=== PATIENT | female | born 1940 | race Caucasian/White ===

== ENCOUNTER 2024-07-10 13:31 | Outpatient (CLI) | payer MEDICARE, SELFPAY ==
[2024-07-10 14:36] LABS: Basophils Percent Auto 0.4 % (0.2-1.2); Eosinophils Absolute Auto 0.2 K/mm3 (0-0.3); Eosinophils Percent Auto 1.5 % (0-4.4); Hematocrit 44.9 % (37.0-47.0); Hemoglobin 14.1 g/dL (12.0-15.0); Immature Granulocyte Absolute 0.02 K/mm3 (0.00-0.031); Immature Granulocyte Percent A 0.2 % (0-0.5); Lymphocytes Absolute Auto 2.03 K/mm3 (0.9-3.2); Lymphocytes Percent Auto 19.1 % (18.3-44.2); Mean Corpuscular HGB Conc 31.4 g/dl (32-36); Mean Corpuscular Hemoglobin 30.7 pg (26-34); Mean Corpuscular Volume 97.6 fl (80-100); Mean Platelet Volume 11.2 fl (7.4-10.4); Monocytes Absolute Auto 0.9 K/mm3 (0.1-0.6); Neutrophils Absolute Auto 7.5 K/mm3 (1.3-6.7); Neutrophils Percent Auto 70.8 % (45.5-73.1); Platelet Count Result 280 k/mm3 (150-375); Red Cell Distribution Width 13.2 % (11.5-14.5); White Blood Count 10.6 K/mm3 (4.5-10.0)
[2024-07-10 14:37] LABS: Alanine Aminotransferase 33 U/L (6-35); Albumin Level 4.3 g/dL (3.5-5.1); Alkaline Phosphatase 154 U/L (38-126); Anion Gap 9 mmol/L (4-12); Aspartate Amino Transferase 87 U/L (14-36); Bilirubin,Total 0.5 mg/dL (0.2-1.3); Blood Urea Nitrogen 24 mg/dL (7-17); Calcium 10.7 mg/dL (8.4-10.2); Carbon Dioxide 30 mmol/L (22-30); Chloride 100 mmol/L (98-107); Cholesterol 192 mg/dL (0-200); Estimated Glomerular Filt Rate 53; Glucose 81 mg/dL (65-110); HDL Direct 45 mg/dL; Potassium 4.2 mmol/L (3.4-5.0); Sodium 139 mmol/L (137-145); Triglycerides 287 mg/dL (<150)
[2024-07-10 14:48] LABS: LDL Cholesterol Direct 78 mg/dL
[2024-07-10 15:47] LABS: Hemoglobin A1C 7.6 % (<5.7)
== END 2024-07-10 13:32 | disposition home or self-care (01) ==
LOC: ANHGOSHLAB 13:33
PROVIDERS: PCP Nurse Practitioner Family; Visit Provider Nurse Practitioner Family
DX: E07.9 Disorder of thyroid, unspecified (principal); G62.9 Polyneuropathy, unspecified; M54.16 Radiculopathy, lumbar region; N28.9 Disorder of kidney and ureter, unspecified; E11.9 Type 2 diabetes mellitus without complications
CPT/HCPCS: 36415; 80053; 80061; 83036; 84443; 85025

== ENCOUNTER 2024-07-31 13:03 | Outpatient (CLI) | payer MEDICARE, SELFPAY ==
[2024-07-31 15:48] LABS: Alanine Aminotransferase 56 U/L (6-35); Albumin Level 4.2 g/dL (3.5-5.1); Alkaline Phosphatase 184 U/L (38-126); Anion Gap 9 mmol/L (4-12); Aspartate Amino Transferase 56 U/L (14-36); Bilirubin,Total 0.4 mg/dL (0.2-1.3); Blood Urea Nitrogen 30 mg/dL (7-17); Calcium 10.5 mg/dL (8.4-10.2); Carbon Dioxide 31 mmol/L (22-30); Chloride 97 mmol/L (98-107); Estimated Glomerular Filt Rate 53; Glucose 82 mg/dL (65-110); Potassium 3.9 mmol/L (3.4-5.0); Sodium 137 mmol/L (137-145)
[2024-07-31 16:26] LABS: Hemoglobin A1C 6.9 % (<5.7)
== END 2024-07-31 13:04 | disposition home or self-care (01) ==
LOC: ANHGOSHLAB 13:05
PROVIDERS: PCP Nurse Practitioner Family; Visit Provider Nurse Practitioner Family
DX: N28.9 Disorder of kidney and ureter, unspecified (principal); E11.9 Type 2 diabetes mellitus without complications
CPT/HCPCS: 36415; 80053; 83036

== ENCOUNTER 2025-04-15 15:55 | Outpatient (CLI) | payer MEDICARE, SELFPAY ==
--- OUTSIDE RECORDS SUMMARY | 2025-04-15 16:10 | XMS_ITS | Encounter Summary ---
Author Organization [facility] Address [address] [place] [address] Phone Care Team Providers Care Director Mortgage Name Role Phone Jose Mace MD, Carlos Primary Care Provider [phone] Encounter Details Date Type Department Care Team (Late st Contact Info) Description 09/11/2019 Orders Only [facility] [place] [address] [place] [address] Jacob Lambert MD [address] [place] [address] Chronic kidney disease, Stage III (moderate) (HCC); Mixed hyperlipidemia Social History Tobacco Use Types Packs/Day Years Used Date Smoking Tobacco: Never Smokeless Tobacco: Never Alcohol Use Standard Drinks/Week Comments No 0 (1 standard drink = 0.6 oz pur e alcohol) Comments Unknown Sex and Gender Information Value Date Recorded Sex Assigned at Not on file Legal Sex Female 9:57 PM EDT Gender Identity Not on file Sexual Orientation Not on file documented as of this encounter Plan of Treatment Not on file documented as of this encounter Visit Diagnoses Diagnosis Chronic kidney disease, Stage III (moderate) Mixed hyperlipidemia documented in this encounter Care Teams Director Mortgage Relationship Specialty Start Date End Date Carlos Garcia Jr., MD [address] [place] [address] [address] [place] [address] PCP - General 09/11/18 12/21/23 documented as of this encounter
--- OUTSIDE RECORDS SUMMARY | 2025-04-15 16:10 | XMS_ITS | Clinical Summary ---
Author Organization [facility] Address [address] [address] Phone Care Team Providers Care Syruper Name Role Phone Unavailable Primary Care Provider Unavailabl e Allergies Active Allergy Reactions Criticality Noted Date Comments Statins 10/29/2014 Other reaction(s): Other (see Comments) Elevated LFT's Medications amLODIPine (NORVASC) 5 MG tablet Take 2.5 mg by mouth 1 (one) time each day. 11/15/2014 Active aspirin 81 MG tablet Take 81 mg by mouth 1 (one) time each day. Active gabapentin (NEURONTIN) 100 MG capsule Take 2 capsules by mouth 1 (one) time each day. 04/05/2017 Active senna-docusate (PERICOLACE) 8.6-50 MG per tablet Take 2 tablets by mouth 1 (one) time each day. 06/24/2018 Active aspirin 325 MG tablet Take 325 mg by mouth 1 (one) time each day. 01/10/2016 Active Multiple Vitamin (MULTI-VITAMIN DAILY PO) Take 1 tablet by mouth 1 (one) time each day. Active Active Problems Problem Noted Date Diagnosed Date Hypertension 06/22/2018 Calculus of gallbladder with chronic 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 obstruction 06/06/2017 Renal stone 01/31/2016 Overview (09/08/2018): Overview: 02/07/16 Left ESWL, FU in 4 wks with [facility] 01/31/16 Left Kidney stone, Schedule left ESWL Chronic kidney disease, Stage III (moderate) Hyperlipidemia 02/04/2014 Immunizations Immunization Administration Dates Next Due H1N1 Inj 08/25/2014,09/11/2013,08/07/2013 Influenza (IM) Preservative Free 09/08/2013 Influenza Split High Dose Pr eservative Free IM 08/11/2016,08/13/2014 Influenza TIV (IM) 08/25/2014,09/11/2013 Influenza, Quadrivalent, Pre servative Free 08/21/2018,08/06/2017,08/29/2016,08/04 Influenza, Unspecified 08/07/2013 Pneumococcal Conjugate 13-Valent 11/28/2016 Pneumococcal Polysaccharide 11/11/2009 Family History Medical History Relation Comments Heart disease Father 2 Relation Status Comments Father 1 Father 2 Social History Tobacco Use Types Packs/Day Years Used Date Smoking Tobacco: Never Smokeless Tobacco: Never Alcohol Use Standard Drinks/Week Comments No 0 (1 standard drink = 0.6 oz pur e alcohol) Comments Unknown Sex and Gender Information Value Date Recorded Sex Assigned at Not on file Legal Sex Female 9:57 PM EDT Gender Identity Not on file Sexual Orientation Not on file Last Filed Vital Signs Vital Sign Reading Time Taken Comments Blood Pressure 132/82 09/11/2018 11:42 AM CDT Pulse 72 09/11/2018 11:42 AM CDT Temperature - - Respiratory Rate - - Oxygen Saturation - - Inhaled Oxygen Concentration - - Weight 76.2 kg (168 lb) 09/11/2018 11:42 AM CDT Height 162.6 cm (5' 4) 07/01/2017 3:57 AM CDT Body Mass Index 28.84 07/01/2017 3:57 AM CDT Plan of Treatment Health Maintenance Due Date Last Done Comments Influenza Vaccine (Season Ended) 2025 08/21/2018, 08/06/2017, 08/29/2016, Additional history exists Pneumococcal Vaccine: 50+ Years Completed 11/28/2016, 11/11/2009 Pneumococcal Vaccine: Peds (0 to 5 Years) and At-Risk Patients (6 to 49 Years) Discontinued 11/28/2016, 11/11/2009 Hepatitis B Vaccine Aged Out No longe r eligible based on patient's age to complete this topic Insurance Medicare RR [facility] Medicare RR [facility]
--- OUTSIDE RECORDS SUMMARY | 2025-04-15 16:10 | XMS_ITS | CONTINUITY OF CARE DOCUMENT ---
Author Name wesley olson Address Unknown Organization [facility] Address [address] [place] [address] Phone [phone] Care Team Providers Care Temperature Regulator Pyrometer Name Role Phone Joselyn MULLER, Say Unavailable Huber TESTER OPERATOR HELPER-BC, Kylah L Unavailable [phone] Huber TESTER OPERATOR HELPER-BC, Kylah L Unavailable PROBLEMS Condition Status Date Provider Notes HTN active Say Alves MD PVD active Say Alves MD Neuropathy active Say Alves MD CAD, mild active Say Alves MD CKD active Say Alves MD Hyperlipidemia active Say Alves MD Family History of Sudden Cardiac : active ? Say Alves MD Family History Coronary Hear t Disease male < 55: active ? Say Alves MD ENCOUNTERS Date Type Provider Location Encounter Diagnosis - In-person encounter Office Visit Say Alves MD [facility] CAD, mild - In-person encounter Office Visit Say Alves MD [facility] - In-person encounter Office Visit Say Alves MD [facility] HTNFamily History Coronary Heart Disease male < 55:Family History of Sudden Cardiac :Hyperlipidem iaPVDCKDNeuropathy VITAL SIGNS Date Observation Value Provider Body Mass Index (Ratio) 24.76 kg/m2 Nico Gonzales blood pressure, diastolic 76 mm[Hg] Ela Castillo blood pressure, systolic 119 mm[Hg] Hui Castillo oxygen saturation, oximetry 98 % Deana Castillo respiratory rate E&M 18 /min Forest Castillo pulse rate 83 /min Deana motnelongo weight E&M 148.8 [lb_av] Deana avalos height E&M 65 [in_i] Deana montelongo Body Mass Index (Ratio) 25.12 kg/m2 Sofia Alves MD blood pressure, cuff size regular Elena Evangelista blood pressure, diastolic 60 mm[Hg] Elena Evangelista blood pressure, systolic 102 mm[Hg] Petar Evangelista oxygen saturation, oximetry 98 % Isabella Evangelista respiratory rate E&M 16 /min Isabella Evangelista pulse rate 83 /min Isabella Evangelista weight E&M 151 [lb_av] Isabella Evangelista height E&M 65 [in_i] Isabella Evangelista Body Mass Index (Ratio) 25.62 kg/m2 Sofia Alves MD blood pressure, cuff size regular Anatoly Bolivar blood pressure, diastolic 76 mm[Hg] Anatoly rri Osmel blood pressure, systolic 127 mm[Hg] Heather Bolivar oxygen saturation, oximetry 98 % Marisel Bolivar respiratory rate E&M 16 /min Marisel patel pulse rate 96 /min Marisel valles weight E&M 154 [lb_av] Marisel fernandezer height E&M 65 [in_i] Marisel valles ALLERGIES Allergy Name Onset Date Reaction Criticality Status STATINS significant elevation of the AST/ALT Low Criticality active HISTORY OF MEDICATION USE Medication Status Instructions Dates Provider Indications Com ments MULTIVITAMIN ADULTS 50+ ORAL TABLET active take one pill a day 3 Marisel Bolivar PLAVIX 75 MG ORAL TABLET active take one pill a day 3 Marisel Bolivar GABAPENTIN 100 MG ORAL CAPSULE active take 3 pills a day 3 Marisel Bolivar ASPIRIN 81 MG ORAL TABLET DELAYED RELEASE active take one pill a day 3 Marisel Bolivar ZETIA 10 MG ORAL TABLET active take one pill a day 3 Marisel Bolivar TRAMADOL HCL 50 MG ORAL TABLET active take one to 2 pills every 8 hours as needed 3 Marisel Bolivar FIORINAL/CODEINE #3 CAPSULE active one pill every 4 hours as needed 3 Marisel Bolivar AMLODIPINE BESYLATE 5 MG ORAL TABLET active take one pill a day 3 Marisel Bolivar SOCIAL HISTORY Date Observation Value Provider social history reviewed E&M revi ewed - no changes required Say Alves MD alcohol use no Deana Pedro jayda smoking status Never smoker Deana Ste kelvinrebeca social history reviewed E&M revi ewed - no changes required Say Alves MD alcohol use no Isabella Evangelista smoking status Never smoker Isabella Evangelista number of grandchildren Say Alves MD U alena Alves MD social history E&M Patient has n ever smoked. Smoking History: P antonio has never smoked. Say Alves MD social history reviewed E&M revi ewed - no changes required Say Alves MD alcohol use no Marisel Cruz lder smoking status Never smoker Say Alves MD FAMILY HISTORY Family Member Condition Mother Family History of Co ngestive Heart Failure: Mother Family History of June ng Cancer: Father Family History of Turner dden Cardiac : Father Family History Coron miladis Heart Disease male < 55: INSURANCE PROVIDERS Payer name Policy type / Coverage type Jackelin red republican ID [facility] [id number] RAILROAD MEDICARE Medicare [id number] ADVANCE DIRECTIVES Name Date DISCUSSED - NO DECISION MADE TREATMENT PLAN Date Name Performer Cardiology:Continue aspirin. Can stop plavix and we need to get the results of her recent FLP. She is currently only on zetia. Say Alves MD Cardiology:Minimal PVD Say pantoja MD Cardiology [place] : H er updated medication list for this problem includes: Zetia 10 Mg Oral Tabs (Ezetimibe) ..... Take one pill a day Say Alves MD Cardiology [place] : B P today: 127/76 Her updated medication list for this problem includes: Aspirin 81 Mg Oral Tbec (Aspirin) ..... Take one pill a day Amlodipine Besylate 5 Mg Oral Tabs (Amlodipine besylate) ..... Take one pill a day Say Alves MD HISTORY OF PROCEDURES Procedure Date Procedure Name Provider Procedure Notes S venu SNOMED-CT: 03678677 Physical Exam, Performed: Pulse Exam of Foot Say Alves MD completed SNOMED-CT: 465671545 480216 Current Medications Documented Say Alves MD completed SNOMED-CT: 782080550 535800 Current Medications Documented Say Alves MD completed SNOMED-CT: 67121735 Physical Exam, Performed: Pulse Exam of Foot Say Alves MD completed EKG Say Alves MD completed SNOMED-CT: 839233516 336739 Current Medications Documented Say Alves MD completed
--- OUTSIDE RECORDS SUMMARY | 2025-04-15 16:11 | XMS_ITS | Referral Summary ---
Author Organization [facility] Address [address] [place] [address] Care Team Providers Care Industrial Waste Treatment Technician Name Role Phone Latimer, Carlos Sunny Primary Care Provider Allergies Active Allergy Reactions Criticality Noted Date Comments Atorvastatin Other (See comments) Low 06/15/2019 Elevates liver enzymes Morphine Nausea only Low 07/21/2020 Medications butalbital-aspi rin-caffeine (FIORINAL) 50-325-40 mg capsuleIndicati ons:Migraine Take 1 capsule by mouth every 4 (four) hours as needed for headaches 30 capsule 1 Active ezetimibe (ZETIA) 10 mg tablet [address] (PROTONIX) 20 mg EC tablet 3 Active gabapentin (NEURONTIN) 300 mg capsule Take 1 capsule (300 mg total) by mouth 2 (two) times a day Active acetaminophen-c odeine (TYLENOL with CODEINE #3) 300-30 mg per tablet Take 1 tablet by mouth 3 (three) times a day as needed for pain 90 tablet [address] (CYMBALTA) 60 mg capsuleIndicati ons:Neuropathic pain TAKE 1 CAPSULE EVERY DAY 100 capsule 1 4 Active furosemide (LASIX) 20 mg tabletIndicatio ns:Localized edema Take 1 tablet (20 mg total) by mouth daily 90 tablet 1 4 06/09/20 25 Active Active Problems Problem Noted Date Diagnosed Date Benign hypertension with CKD (chronic kidney disease) stage III 12/24/2023 Lesion of pancreas 01/02/2023 Overview (12/24/2023): IPMN followed by GI (Dr. Cardenas) Imaging Nov 2023 and repeat in 2 years Sensorineural hearing loss (SNHL) of both ears 0 12/12/2021 Intervertebral disc disorder with radiculopathy of lumbar region 04/12/2021 Overview (04/12/2021): Added automatically from request for surgery [id number] Lumbosacral radiculopathy 03/02/2021 Spondylolisthesis of lumbar region 03/02/2021 Mixed stress and urge urinary incontinence 10/24 Chronic bilateral low back pain without sciatica 06/15/2019 Calculus of gallbladder with chronic 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 obstruction 06/06/2017 Atherosclerotic heart diseas e of [place] coronary artery without angina pectoris 02/18/2017 Neuropathy 09/27/2016 Overview (03/30/2024): Following with Neurology Continue gabapentin and Cymbalta p.r.n. use of pain medication Calculus of kidney 01/31/2016 Overview (06/05/2022): Overview: 02/07/16 Left ESWL, FU in 4 wks with KUB 01/31/16 Left Kidney stone, Schedule left ESWL 02/07/16 Left ESWL, FU in 4 wks with KUB 01/31/16 Left Kidney stone, Schedule left ESWL 02/07/16 Left ESWL, FU in 4 wks with KUB 01/31/16 Left Kidney stone, Schedule left ESWL Overview: 02/07/16 Left ESWL, FU in 4 wks with KUB 01/31/16 Left Kidney stone, Schedule left ESWL Stage 3 chronic kidney disease 09/06/2015 Overview (12/24/2023): Overall stable GFR 47 in April 2023 GFR 48 in Nov 2023 Dyslipidemia 02/04/2014 Overview (12/24/2023): Stable on Zetia LDL 114 in April 2023 Migraine 02/04/2014 Essential hypertension 02/04/2014 Overview (12/24/2023): Chronic, stable condition Resolved Problems Problem Noted Date Diagnosed Date Resolved Date Family history of coronary artery disease 06/05/2022 12/24/2023 Family history of other specified conditions 12/24/2023 Bacteria in urine 06/22/2018 12/24/2023 Colitis, acute 06/22/2018 12/24/2023 Neuropathic pain 05/05/2017 03/30/2024 Immunizations Immunization Administration Dates Next Due Influenza, Quadrivalent, Rec ombinant, Egg Free, Preservative Free, Intramuscular 10/29/2023,10/12/2022,08/21/2021,08/29,08/18/2019 Influenza, Quadrivalent, Spl it, Preservative Free, Intramuscular 08/21/2018,08/06/2017,08/29/2016,08/04 Influenza, Trivalent, High D ose, Split, Preservative Free, Intramuscular 08/11/2016,08/13/2014 Influenza, Trivalent, IM (MDV) 08/25/2014,2012,08/07/2013 Influenza, Trivalent, Preser vative Free, Intramuscular 09/08/2013 Moderna SARS-CoV-2 Monovalen t Vaccination (12+ YRS) 01/03/2021,12/06/2020 Pneumococcal Conjugate PCV 13 11/28/2016 Pneumococcal Polysaccharide PPV23 11/11/2009 Tdap 08/31/2019 Social History Tobacco Use Types Packs/Day Years Used Date Smoking Tobacco: Never Cigarettes Smokeless Tobacco: Never Tobacco Cessation:Counseling Given: Not Answered AUDIT-C Answer Date Recorded Q1: How often do you have a drink containing alc ohol? 2-4 times a month 12/24/2023 Q2: How many drinks containi ng alcohol do you have on a typical day when you are drinking? 1 or 2 12/24/2023 Q3: How often do you have si x or more drinks on one occasion? Never 12/24/2023 PHQ-2 Answer Date Recorded PHQ-2 Total Score (If total score is 3 or more points, staff should administer the PHQ-9) 0 12/24/2023 Comments No Sex and Gender Information Value Date Recorded Sex Assigned at Not on file Legal Sex Female 6:30 AM ZIGZAG TUNNEL ELASTIC OPERATOR Gender Identity Female 02/17/2021 4:22 PM CDT Sexual Orientation Straight 02/17/2021 4: 22 PM CDT Last Filed Vital Signs Vital Sign Reading Time Taken Comments Blood Pressure 142/80 03/30/2024 11:03 AM CDT Pulse 97 03/30/2024 11:03 AM CDT Temperature 36.4 C (97.5 F) 03/30/2024 11:03 AM CDT Respiratory Rate 18 03/30/2024 11:03 AM CDT Oxygen Saturation 97% 03/30/2024 11:03 AM CDT Inhaled Oxygen Concentration - - Weight 83.9 kg (185 lb) 03/30/2024 11:03 AM CDT Height 160 cm (5' 3) 03/30/2024 11:03 AM CDT Body Mass Index 32.77 03/30/2024 11:03 AM CDT Plan of Treatment Not on file Medical Devices Implanted Type Area Mcat Tutor Device Identifier Shelf Expiration Date Model / Serial / Lot Spinal Graft Tech [id number] Magnifuse 5x1cm Spine Cervical Posterior Graft Bone Demineralized - [id number] - [id number] Implanted:Qty: 1 on 04/25/2021 by Ar Nova MD PhD at [facility] N/A: Thoracic-L umbar Spine Medtronic Inc 01/17/2023 [id number] / [id number] / Acuity [employer] Inc [id number] Tissue Bone Void Filler Acupac Plus 10cc - [id number] - [id number] Implanted:Qty: 1 on 04/25/2021 by Ar Nova MD PhD at [facility] N/A: Thoracic-L umbar Spine [employer] Inc 05/11/2025 [id number] / [id number] Creo Amp Polyaxial Thread Tulip Spine Transfacet Screw Bone Cocr - [id number] Implanted:Qty: 4 on 04/25/2021 by Andrea Bruno MD at [facility] N/A: Spine Lumbar [employer] 7146.0110 / / [employer] 1134.001 Creo Spinal Cap Locking Nonsterile Mis - [id number] Implanted:Qty: 4 on 04/25/2021 by Andrea Bruno MD at [facility] [employer] 1134.0010 / / [employer] 1119.1435 Creo Creo Amp 6-5mm 35mm Modular Spine Cortical Screw Bone - [id number] Implanted:Qty: 4 on 04/25/2021 by Andrea Bruno MD at [facility] N/A: Spine Lumbar [employer] 1119.1435 / / [employer] 193.122 Rise [id number] 10d Lordotic Spacer Spinal Nonsterile - [id number] Implanted:Qty: 1 on 04/25/2021 by Andrea Bruno MD at [facility] N/A: Spine Lumbar [employer] 193.122 / / [employer] 1119.7035 Creo 5.5mm 35mm Curve Ney Spinal Titanium - [id number] Implanted:Qty: 2 on 04/25/2021 by Andrea Burno MD at [facility] N/A: Spine Lumbar [employer] 1119.7035 / / Insurance MEDICARE [place] [address] [place] [address] [facility]ICARE [facility] Advance Directives For more information, please contact: [phone] Documents on File Type Date Recorded Patient Cold Storage Superintendent Expl anation ADVANCE DIRECTIVE 04/19/2021 7:41 AM ADVANCE DIRECTIVE 04/20/2020 12:00 AM DENISHA R OF MAINTENANCE MACHINIST FINANCIAL/MEDICAL * Full Code (Latest Code Status on File) Date Activated Date Inactivated Comments 04/25/2021 8:13 PM 04/27/2021 2:26 PM Care Teams Industrial Waste Treatment Technician Relationship Specialty Start Date End Date Carlos Manzanares DO PCP - General Family Practice 10/30/19
--- OUTSIDE RECORDS SUMMARY | 2025-04-15 16:11 | XMS_ITS | Clinical Summary ---
Author Organization [facility] Address [address] [place] [id number] Phone Care Team Providers Care Property Management Coordinator Name Role Phone Unavailable Primary Care Provider Unavailabl e Medications amLODIPine (NORVASC) 5 MG tablet 1 daily 0 02/08/2017 Active traMADol (ULTRAM) 50 MG tablet half bid prn 0 02/08/2017 Active Multiple Vitamins-Minera ls (MULTIVITAMIN ADULT) tablet 1 daily 0 02/11/2017 Activ e gabapentin (NEURONTIN) 100 MG capsule 3 daily 0 02/08/2017 Active ezetimibe (ZETIA) 10 MG tablet 1 daily 0 02/08/2017 Active clopidogrel (PLAVIX) 75 MG tablet 1 daily 0 02/08/2017 Active aspirin 81 MG chewable tablet 1 daily 0 02/08/2017 Act inder butalbital-aspi rin-caffeine (FIORINAL) 50-325-40 MG per capsule 1 capsule orally every 4 hours as needed 0 02/11/2017 Active Active Problems Problem Noted Date Diagnosed Date Chronic kidney disease, stage 3 (moderate) 02/11 Essential (primary) hypertension 02/11/2017 Other hyperlipidemia 02/11/2017 Overview (01/24/2019): Converted unresolved ICD9, potential mismatch. Family History Medical History Relation Comments Heart disease Father Heart disease Mother Malignant neoplastic disease Mother Relation Status Comments Father Mother Social History Tobacco Use Types Packs/Day Years Used Date Smoking Tobacco: Never Alcohol Use Standard Drinks/Week Comments No 0 (1 standard drink = 0.6 oz pur e alcohol) Comments Unknown Sex and Gender Information Value Date Recorded Sex Assigned at Not on file Legal Sex Female 7:29 AM MST Gender Identity Not on file Sexual Orientation Not on file Last Filed Vital Signs Vital Sign Reading Time Taken Comments Blood Pressure 122/84 02/11/2017 12:01 AM CDT Pulse 72 02/11/2017 12:01 AM CDT Temperature 35.3 C (95.5 F) 02/11/2017 12:01 AM CDT Respiratory Rate - - Oxygen Saturation - - Inhaled Oxygen Concentration - - Weight 67.1 kg (148 lb) 02/11/2017 12:01 AM CDT Height 162.6 cm (5' 4) 02/11/2017 12:01 AM CDT Body Mass Index 25.4 02/11/2017 12:01 AM CDT Plan of Treatment Not on file
--- OUTSIDE RECORDS SUMMARY | 2025-04-15 16:11 | XMS_ITS | Clinical Summary ---
Author Organization [facility] Address [address] [place] [id number] Care Team Providers Care Eviction Specialist Name Role Phone Chaves, Carlos Sunny Primary Care Provider Allergies Active [...] (04/12/2021): Added automatically from request for surgery [id number] Lumbosacral radiculopathy 03/02/2021 Spondylolisthesis of lumbar region 03/02/2021 Mixed stress and urge urinary incontinence 10/24 Chronic bilateral low back pain without sciatica 06/15/2019 Calculus of gallbladder with chronic 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 obstruction 06/06/2017 Atherosclerotic heart diseas e of [place] coronary artery without angina pectoris 02/18/2017 Neuropathy [...] 11/28/2016 Pneumococcal Polysaccharide PPV23 11/11/2009 Tdap 08/31/2019 Surgical History Surgery Date Site/Laterality Comments CHOLECYSTECTOMY HYSTERECTOMY TONSILECTOMY, ADENOIDECTOMY, BILATERAL MYRINGOTOMY AND TUBES MELANOMA RESECTION TUBAL LIGATION COLONOSCOPY EYE SURGERY CATARACT EXTRACTION CATARACT EXTRACTION removal Medical History Medical History Date Comments Cancer (HCC) Chronic kidney disease Lumbar radiculopathy Peripheral neuropathy Cataract Kidney stone kidney disease Family History Medical History Relation Name Comments Stroke Cousin Heart disease Father Mendoza Heart disease Maternal Grandmother Marsha Cancer Mother Nina Heart disease Mother Nina Anesthesia problems Neg Hx Relation Name Status Comments Cousin Father Mendoza Maternal Grandmother Marsha Mother Nina Social History Tobacco Use Types Packs/Day Years [...] on file Legal Sex 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 Gender Identity Female 02/17/2021 4:22 PM CDT Sexual Orientation Straight 02/17/2021 4: 22 PM CDT Obstetrics History Last Filed Vital Signs Vital Sign Reading [...] 03/30/2024 11:03 AM CDT Plan of Treatment Health Maintenance Due Date Last Done Comments Hepatitis B Screening 1958 Zoster Vaccine (1 of 2) 1990 Well Visit 65+ 2005 Osteoporosis Screening-Bone Density Scan 06/01/2013 06/01/2011 Covid-19 Vaccine (2023-2 5 season) 2024 01/03/2021, 12/06/2020 Depression Screening 12/24/2024 12/24/2023 Fall Risk Assessment 12/24/2024 12/24/2023, 04/27/20 Influenza Vaccine (Season Ended) 2025 10/29/2023, 10/12/2022, 08/21/2021, Additional history exists DTaP/Tdap/Td Vaccine (2 - Td or Tdap) 08/31/2029 08/31/2019 Pneumococcal vaccine 65+ Completed 11/28/2016, 11/2009 Medical Devices Implanted Type Area Lei Maker Device Identifier Shelf Expiration Date Model / Serial / Lot Spinal Graft Tech [id number] Magnifuse 5x1cm Spine Cervical Posterior Graft Bone Demineralized - [id number] - [id number] Implanted:Qty: 1 on 04/25/2021 by Ar Nova MD PhD at [facility] N/A: Thoracic-L umbar Spine Medtronic Inc 01/17/2023 [id number] / [id number] / Acuity [employer] Inc [id number] Tissue Bone Void Filler Acupac Plus 10cc - [id number] - [id number] Implanted:Qty: 1 on 04/25/2021 by Ar Nova MD PhD at [facility] N/A: Thoracic-L umbar Spine [employer] 05/11/2025 [id number] / [employer] 7146.011 Creo Amp Polyaxial Thread Tulip Spine Transfacet Screw Bone Cocr - [id number] Implanted:Qty: 4 on 04/25/2021 by Andrea rBuno MD at [facility] N/A: Spine Lumbar [employer] 7146.0110 / / [employer] 1134.001 Creo Spinal Cap Locking Nonsterile Mis - [id number] Implanted:Qty: 4 on 04/25/2021 by Andrea Bruno MD at [facility] [employer] 1134.0010 / / [employer] 1119.1435 Creo Creo Amp 6-5mm 35mm Modular Spine Cortical Screw Bone - [id number] Implanted:Qty: 4 on 04/25/2021 by Andrea Bruno MD at [facility] N/A: Spine Lumbar [employer] 1119.1435 / / [employer] 193.122 Rise [id number] 10d Lordotic Spacer Spinal Nonsterile - [id number] Implanted:Qty: 1 on 04/25/2021 by Andrea Bruno MD at [facility] N/A: Spine Lumbar [employer] 193.122 / / [employer] 1119.7035 Creo 5.5mm 35mm Curve Ney Spinal Titanium - [id number] Implanted:Qty: 2 on 04/25/2021 by Andrea Bruno MD at [facility] N/A: Spine Lumbar [employer] 1119.7035 / / [place] [address] [facility] MEDICARE RAILROAD [facility] Advance Directives For more information, please contact: [phone] Documents on File Type Date Recorded Patient Choker Hooker Expl anation ADVANCE DIRECTIVE 04/19/2021 7:41 AM ADVANCE DIRECTIVE 04/20/2020 12:00 AM DENISHA R OF AUTOMOTIVE DIAGNOSTIC TECHNICIAN FINANCIAL/MEDICAL * Full Code (Latest Code Status on File) Date Activated Date Inactivated Comments 04/25/2021 8:13 PM 04/27/2021 2:26 PM Care Teams Eviction Specialist Relationship Specialty Start Date End Date Carlos Manzanares DO PCP - General Family Practice 10/30/19
--- OUTSIDE RECORDS SUMMARY | 2025-04-15 16:11 | XMS_ITS | Clinical Summary ---
Author Organization [facility] Address [address] [place] [address] Care Team Providers Care Dry Roller Name Role Phone Carlos Manzanares Charlene Primary Care Provider [phone] Source Comments [facility],non-owned Affiliates and Associated Physician Practices is amultiple site organization consisting of ambulatory clinics and hospital sitesin [place], [place], [place] and [place]. This disclosure is being madepursuant to the Care Everywhere program and may not contain all information available regarding this patient. Last updated 18.[employer] [facility] Allergies Active Allergy Reactions Criticality Noted Date Comments Hmg-Coa-R Inhibitors Other 10/29/2014 Other reaction(s): Other (see Comments) Elevated LFT's Elevates liver enzymes Elevated LFT's Morphine Nausea and/or Vomiting Low 07/21/2020 Medications * Be aware that medications may not be up to date on this document. Alwaysverify current medications with the patient. Acetaminophen- Codeine 300-30 MG acetaminophen 300 mg-codeine 30 mg tablet 0 Active hydroCHLOROthi azide (MICROZIDE) 12.5 MG capsule Take 12.5 mg by mouth once daily 0 Active DULoxetine (CYMBALTA) 30 MG capsule Take 30 mg by mouth once daily 0 Active oxybutynin CR 24hr (DITROPAN-XL) 5 MG tablet Take 5 mg by mouth once daily 1 Active Active Problems No known active problems Social History Tobacco Use Types Packs/Day Years Used Date Smoking Tobacco: Never Smokeless Tobacco: Never Comments Unknown Sex and Gender Information Value Date Recorded Sex Assigned at Not on file Legal Sex Female 10:01 AM CDT Gender Identity Not on file Sexual Orientation Not on file Last Filed Vital Signs Vital Sign Reading Time Taken Comments Blood Pressure 136/74 12/23/2020 12:28 PM MANAGER STUDY Pulse 97 12/23/2020 12:28 PM MANAGER STUDY Temperature - - Respiratory Rate 18 12/23/2020 12:28 PM MANAGER STUDY Oxygen Saturation 98% 12/23/2020 12:28 PM MANAGER STUDY Inhaled Oxygen Concentration - - Weight 83.9 kg (185 lb) 09/28/2020 11:03 AM MANAGER STUDY Height 160 cm (5' 3) 09/28/2020 11:03 AM MANAGER STUDY Body Mass Index 32.77 09/28/2020 11:03 AM MANAGER STUDY Plan of Treatment Health Maintenance Due Date Last Done Comments BONE DENSITY TESTING 1940 DTAP/TDAP/TD VACCINES (1 - Tdap) 1959 PNEUMOCOCCAL VACCINE 50+ (1 of 1 - PCV) 1990 ZOSTER VACCINE (1 of 2) 1990 Respiratory Syncytial Virus (RSV) Vaccine Pt: or over 60 yrs (1 - 1-dose 75+ series) 2015 COVID-19 VACCINE (2 - season) 2024 12/06/2020 DEPRESSION SCREENING 11/11/2024 INFLUENZA VACCINE (Season Ended) 2025 08/29/2020, 08/18/2019, 08/21/2018, Additional history exists HEPATITIS B VACCINE Aged Out No longe r eligible based on patient's age to complete this topic HIB VACCINE Aged Out No longer eligi ble based on patient's age to complete this topic HPV VACCINE Aged Out No longer eligi ble based on patient's age to complete this topic MENINGOCOCCAL (Group B) VACCINE SHARED DECISION-MAKING Aged Out No longer eligible based on patient's age to complete this topic MENINGOCOCCAL GROUPS A/C/Y/W VACCINE Aged Out No longer eligible based on patient's age to complete this topic Insurance MEDICARE SUPPLEMENT PAYOR GENERIC MEDICARE ANTHEM Care Teams Dry Roller Relationship Specialty Start Date End Date Carlos Manzanares DO PCP - General Family Medicine 09/06/20
--- OUTSIDE RECORDS SUMMARY | 2025-04-15 16:11 | XMS_ITS | Continuity of Care Document ---
Author Organization [facility], L TD Address [address] [place] [address] Phone Care Team Providers Care Molding Supervisor Name Role Phone Tracee Sol OD Unavailable Unavailable Allergies, Adverse Reactions, Alerts Substance Reaction Status Criticality No Known Drug Allergies Active No I nformation Medications Medication Instructions Dosage Effective Dates (start - stop) Status Comments gabapentin 100 mg capsule take 2 capsule by oral route AM, 1 capsule at noon, and 2 capsules in the evening. - Active tramadol 50 mg tablet take 1 tablet by oral route every 6 hours as needed 50 MG - Active Aspirin Low Dose 81 mg [...] Diagnoses Date Provider Providers Copied on Encounter [facility], [facility], [address] [place] [address], [id number] , [place] tel: [phone] [facility] no problems with vision and no complaints (chief complaint)P t. declines Wellness/Sc reening photos (chief complaint)n o problems with vision and no complaints (chief complaint)P t. declines Wellness/Sc reening photos (chief complaint) Dry eye syndrome of bilateral lacrimal glandsPresbyopiaH ypermetropia, left eyeRegular astigmatism, bilateralPresence of intraocular lens 9 [facility]. [address] [place] [address], [id number] , [place]. tel: [phone] [facility], [facility], [facility] [place], [place], [id number] , [place] tel: [phone] [facility] no problems with vision and no complaints (chief complaint)n o problems with vision and no complaints (chief complaint) Dry eye syndrome of right lacrimal glandDry eye syndrome of left lacrimal glandHypermetropi a, bilateralRegular astigmatism, bilateralPresbyop iaPresence of intraocular lens 8 Avinash Zheng. [address] [place] [address], [place], [place], [id number] , [place]. tel: [phone] Referring Provider: Linden Chang, [address] [place] [address], [place], [address] . tel:[phone] [facility], [address] [place] [address], [id number] , [place] tel: [phone] [facility] No Information 7 Avinash Zheng. [address] [place] [address], [place], [place], [id number] , [place]. tel: [phone] Referring Provider: Norm Degroot, [address] [place] [address], [place], [address] . tel:[phone] [facility], [address] [place] [address], [id number] , [place] tel: [phone] [facility] irritation, scratchy, vision improved (chief complaint)i rritation, scratchy, vision improved (chief complaint) Presence of intraocular lensCataract extraction status, left eyeCataract extraction status, right eye 7 Avinash Zheng. [address] [place] [address], [place], [place], [id number] , [place]. tel: [phone] Referring Provider: Linden Chang, [address] [place] [address], [id number] . tel:[phone] [facility], [address] [place] [address], [id number] , [place] tel: [phone] [facility] burning (chief complaint)b urning (chief complaint) Dry eye syndrome of bilateral lacrimal glandsPresence of intraocular lens 7 Bettie Almonte. [address] [place] [address], [place], [place], [id number] , [place]. tel: [phone] [facility], [address] [place] [address], [id number] , [place] tel: [phone] [facility] blurry vision OS (chief complaint)f eels better today, last night was pain OS (chief complaint)v ision is improved OD (chief complaint)b lurry vision (chief complaint)f eels better today, last night was pain (chief complaint)v ision is improved (chief complaint) No Information Raj Cheatham. [address] [place] [address], [id number] , [place]. tel: [phone] Referring Provider: Linden Chang, [address] [place] [address], [id number] . tel:[phone] [facility], [address] [place] [address], [id number] , [place] tel: [phone] [facility] No Information Avinash Zheng. [address] [place] [address], [id number] , [place]. tel: [phone] Referring Provider: Linden Chang, [address] [place] [address], [address] . tel:[phone] [facility], [address] [place] [address], [id number] , [place] tel: [phone] [facility] No Information Avinash Zheng. [address] [place] [address], [id number] , [place]. tel: [phone] Referring Provider: Norm Degroot, [address] [place] [address], [address] . tel:[phone] [facility], [address] [place] [address], [id number] , [place] tel: [phone] [facility] blurry vision OD (chief complaint)d enies pain or discomfort OD (chief complaint)n ot as clear as OD OS (chief complaint)b lurry vision (chief complaint)d enies pain or discomfort (chief complaint)n ot as clear as OD (chief complaint) No Information 7 Avinash Zheng. [address] [facility], [place], [place], [id number] , [place]. tel: [phone] Referring Provider: Linden Chang, [address] [place] [address], [address] . tel:[phone] [facility], [facility], [address] [place] [address], [place], [place], [id number] , [place] tel: [phone] [facility], [facility] No Information 7 Avinash Norm. [address] [facility], [place], [place], [id number] , [place]. tel: [phone] Referring Provider: Norm Degroot, [address] [place] [address], [id number] . tel:[phone] [facility], [facility], [address] [place] [address], [id number] , [place] tel: [phone] [facility] decreased vision (chief complaint)d ecreased vision (chief complaint) Presbyopia 7 Avinash Zheng. [address] [place], [place], [id number] , [place]. tel: [phone] Referring Provider: Linden Chang, [address] [place], [address] . tel:[phone] [facility], [facility], [address] [place] [address], [id number] , [place] tel:[phone] [facility] blurry vision (chief complaint)b lurry vision (chief complaint) Age-related nuclear cataract, bilateral 6 Avinash Zheng. [address] [facility], [place], [place], [id number] , [place]. tel: [phone] Referring Provider: Linden Chang, [address] [place] [address], [place], [address] . tel:[phone] [facility], [address] [place] [address], [place], [place], [id number] , [place] tel:[phone] [facility] no problems with vision and no complaints (chief complaint)n o problems with vision and no complaints (chief complaint) PresbyopiaOther and combined forms of senile cataractMacular puckering of retina 5 Raj Cheatham. [address] [place] [address], [place], [place], [id number] , [place]. tel: [phone] Referring Provider: Linden Chang, [address] [place] [address], [place], [address] . tel:[phone] [facility], [address] [place] [address], [place], [place], [id number] , [place] tel:[phone] [facility] No Information 4 Avinash Zheng. [address] [place] [address], [place], [place], [id number] , [place]. tel: [phone] Referring Provider: Linden Chang, [address] [place] [address], [place], [address] . tel:[phone] [facility], [address] [place] [address], [id number] , [place] tel:[phone] [facility] floaters are stable (chief complaint) Other and combined forms of senile cataractSenile nuclear sclerosisVitreous degenerationMacul ar puckering of retinaPresbyopia 3 Raj Cheatham. [facility] [facility], [place], [place], [id number] , [place]. tel: [phone] Referring Provider: Linden Chang, [address] [place] [address], [place], [address] . tel:[phone] [facility], [address] [place] [address], [id number] , tel: [phone] [facility] floater (chief complaint) Vitreous degenerationVitre ous degeneration Oct-0 3 Raj Cheatham. [address] [place] [address], [id number] , . tel: [phone] Referring Provider: Linden Chang, [address] [place] [address], [address] . tel:[phone] [facility], [address] [place] [address], [id number] , tel: [phone] [facility] no problems with V/A and no complaints (chief complaint) Other and combined forms of senile cataractSenile nuclear sclerosisOther and combined forms of senile cataractSenile nuclear sclerosis Sep-1 3 Avinash Zheng. [address] [place] [address], [id number] , . tel: [phone] Family History Family Member Type Diagnosis Age At Onset Problem (finding) No Family history of Di abetes mellitus Problem (finding) No Family history of Gl aucoma Mother Problem (finding) cataract Problem (finding) No Family hist ory of Macular Degeneration Mother Problem (finding) HBP Payers Payer name Insurance type Covered libertarian ID Walter pacheco(s) RR Medicare MB [id number] [facility] [id number] Social History Type Description Quantity Date Captured [...] eye and left eye. no problems with vision and no complaints (chief complaint) Pt. declines Wellness/Screening photos (chief complaint) Reason For Referral Reason For Referral No [...] eye. Had standard IOL OD 05/02/17 c J. It started about 3 day(s) ago. The [...] Instructions Date Instruction Additional Infor delores Impression/Plan Follow up - 1 year R/T/D Impression/Plan - Ey es are healthy. IOL look great. No ARMD or glaucoma. Vision is doing well. Present glasses are adequate. Updated rx if needed. Ok to use artificial tears OU PRN any dryness symptoms. Follow up - 1 yaer w ith [facility] for Ref T&D Impression/Plan - Jonnathan th lens implants look fine. Cont. Pred Forte gtt BID OU x 6 weeks after surgery. Distance vision is great. Can use +2.25 or +2.50 OTC readers. Return in 1 year or sooner if any problems. Use OTC Art. Tears for irritation; should improve with time as the eyes heal. Follow up - as sched c [facility] for P O 2/3 Impression/Plan - Se e no signs of infection or FB OU. Think pt is experiencing dryness and should START: Art Tears QID OU and CONTINUE: Pred BID OU. F/u in [facility] as sched for PO 2/3. Follow up - per sg Impression/Plan - [...] Related to Age-r elated nuclear cataract, bilateral Follow up - 1 year R/T/D Related to Age-related nuclear cataract, bilateral Impression/Plan - Ey es are healthy. No glaucoma or ARMD. Cataract present OU and explained to pt. Will monitor until pt becomes frustrated with her vision. Small rx change, update is optional. Related to Age-related nuclear cataract, bilateral Follow up - 1 year w ith K for Ref T&D. Impression/Plan - Op tional gls Rx update, small change. Eyes are healthy. No glaucoma or ARMD. Progressing cataracts OU are normal - will continue to monitor & can remove with sg when v/a is no longer well corrected. Recommend yearly f/u, TCI if problems or changes. - Return in 1 year w ith K for Ref T & D. 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 Condition: established, stable. [...] problems to call. Related to ERM - ODReturn in 1 [...] N/C. See plan below. Related to PVD Combined Cataract OD . Condition: established, worsening. [...] problems or changes. Related to NS Cataract - Return in 1 year w perico [facility] for Ref T & D. Related to NS Cataract Assessments Type Assessment Date assessment Dry eye syndrome of bilateral la crimal glands assessment Presbyopia assessment Hypermetropia, left eye 019 assessment Regular astigmatism, bilateral J assessment Presence of intraocular lens Apr Patient Care Teams Name Effective Dates (start - stop) Status Members No Information
--- OUTSIDE RECORDS SUMMARY | 2025-04-15 16:11 | XMS_ITS | Encounter Summary ---
Author Organization [facility] Address [address] [place] [address] Phone Care Team Providers Care Engagement Lead Name Role Phone Zechariah Cohen MD Unavailable [phone] Kishan Underwood MD Unavailable [phone] Davide Borjas MD Unavailable Un available Jacob Lambert MD Unavailable Carlos Manzanares DO Primary Care Provider Reason for Visit * Reason Onset Date Comments Patient Outreach 08/09/2020 [employer] Encounter Details Date Type Department Care Team (Late st Contact Info) Description 08/09/2020 [facility] [address] [place] [address] Provider, None [place] Patient Outreach ([employer]) Social History Tobacco Use Types Packs/Day Years Used Date Smoking Tobacco: Never Smokeless Tobacco: Never Comments:mother & father bot h smoked Alcohol Use Standard Drinks/Week Comments No 0 (1 standard drink = 0.6 oz pur e alcohol) PHQ-2 Answer Date Recorded PHQ-2 Score 0 07/25/2019 Sexually Active Control Partners Comments Yes Male Comments No Sex and Gender Information Value Date Recorded Sex Assigned at Female 07/04/2023 10:46 AM CDT Legal Sex Female 9:21 AM CDT Gender Identity Female 07/04/2023 10:46 AM CDT Sexual Orientation Not on file documented as of this encounter Plan of Treatment Upcoming Encounters Date Type Department Care Team (Late st Contact Info) Description 08/16/2025 10:15 AM CDT Office Visit [facility] [address] [phone] Kaushal Scott MD [address] [place] [address] documented as of this encounter Visit Diagnoses Not on filedocumented in this encounter Additional Health Concerns Assessment Noted Time PHQ-9 Depression Total Score: 0 03/16/20 19 11:00 AM CDT documented as of this encounter Care Teams Engagement Lead Relationship Specialty Start Date End Date Carlos Manzanares DO [address] [place] [address] PCP - General Family Medicine 07/04/23 Zechariah Cohen MD Consulting Physician Physical Medicine & Rehabilitation 06/11/16 Kishan Underwood MD Consulting Physician Urology 10/08/16 Davide Borjas MD Consulting Physician General Surgery 05/29/17 Jacob Lambert MD [address] [place] [address] [employer] Nephrology 05/30/18 documented as of this encounter
--- OUTSIDE RECORDS SUMMARY | 2025-04-15 16:11 | XMS_ITS | Clinical Summary ---
Author Organization [facility] Address [address] [place] [address] Phone Care Team Providers Care Twx Operator Name Role Phone Zechariah Cohen MD Unavailable [phone] Kishan Underwood MD Unavailable [phone] Davide Borjas MD Unavailable Un available Jacob Lambert MD Unavailable Carlos Manzanares DO Primary Care Provider Allergies Active Allergy Reactions Criticality Noted Date Comments Morphine Other (see Comments),Nausea Low 07/21/20 20 Statins Other (see Comments) 10/29/2014 Elevated LFT's Medications Aspirin 81 MG Tablet Take 81 mg by mouth daily. Active acetaminophen-c odeine (TYLENOL #3) 300-30 MG Tablet Indications: Chronic Pain TAKE 1 TABLET THREE TIMES DAILY NEEDED FOR CHRONIC PAIN 0 Active butalbital-acet aminophen-caffe ine (FIORICET, ESGIC) 50-325-40 MG Tablet Take by mouth. Activ e DULoxetine (CYMBALTA) [address] Particles TAKE 1 CAPSULE EVERY DAY 3 Active ezetimibe (ZETIA) 10 MG Tablet Take 10 mg by mouth. 7 Active pantoprazole (PROTONIX) 20 MG Tablet Delayed Response Take 1 Tablet by mouth daily. 3 Active Tresiba FlexTouch 100 UNIT/ML Solution Pen-injector by Subcutaneous route. 4 Active metFORMIN (GLUCOPHAGE) 500 MG Tablet Take 500 mg by mouth. 4 Active gabapentin (NEURONTIN) 300 MG Capsule Take 300 mg by mouth 3 times daily. 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 Bacteria in urine 06/22/2018 Hypotension 06/22/2018 Slow transit constipation 06/22/2018 Colitis, acute 06/22/2018 Calculus of gallbladder with chronic 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 obstruction 06/06/2017 Neuropathic pain 05/05/2017 Cyst of left kidney 04/27/2016 Kidney stone 01/31/2016 Overview (04/09/2017): 02/07/16 Left ESWL, FU in 4 wks with KUB 01/31/16 Left Kidney stone, Schedule left ESWL Chronic kidney disease, stage III (moderate) Hypertension 02/04/2014 Hyperlipidemia 02/04/2014 Migraine 02/04/2014 Encounters Date Type Department Care Team Description 02/15/2025 10:50 AM CDT Lab [facility] [address] [address] Lab, [facility]og[facility] (HCC) 02/15/2025 10:15 AM CDT Office Visit [facility] [address] [address] Jossy Mendoza, RENEWAL SPECIALIST, RUBY ENGINEER Hypogammaglobulinemia (HCC) (Primary Dx) 02/15/2025 Travel from Last 3 Months Immunizations Immunization Administration Dates Next Due Influenza Vaccine 09/08/2013 Influenza Vaccine greater than 3 yrs 08/25/2014, 09/11/2013 Influenza Vaccine, Quadrivalent, PF 08/11,08/06/2017,08/29/2016,2014 Influenza, Recombinant, Quadrivalent,injectable, Pf 10/29/2023,10/12/2022,08/21/2021,2019,08/18/2019 Influenza, Seasonal, Injecta ble, Undefined 08/25/2014,09/11/2013,08/07/2013 Influenza, high-dose, trivalent, PF 08/11/2016,1 PUR FLU 3+ YRS PRES FREE QUAD IM 08/29/2016,07/13 PUR PCV-13 11/28/2016 Pneumococcal Vaccine - 13 Valent 11/28/2016 Pneumococcal Vaccine Adult - 23 Valent 11/11/2009 Family History Medical History Relation Name Comments Heart Attack Father not sure a hear t attack but had a bad heart Leukemia/Lymphoma Maternal Aunt Cancer Mother lung Congestive Heart Failure Mother Lupus Mother Migraines Mother Breast Cancer Neg Hx Relation Name Status Comments Father (Age 54) hole in he art Maternal Aunt Maternal Grandfather Maternal Grandmother Mother (Age 81) Paternal Grandfather Paternal Grandmother Social History Tobacco Use Types Packs/Day Years Used Date Smoking Tobacco: Never Smokeless Tobacco: Never Tobacco Cessation:Counseling Given: Not Answered Comments:mother & father both smoked Alcohol Use Standard Drinks/Week Comments Yes 0 (1 standard drink = 0.6 oz pur e alcohol) occasionally PHQ-2 Answer Date Recorded PHQ-2 Score 0 07/25/2019 Sexually Active Control Partners Comments Yes Male Comments No Sex and Gender Information Value Date Recorded Sex Assigned at Female 07/04/2023 10:46 AM CDT Legal Sex Female 9:21 AM CDT Gender Identity Female 07/04/2023 10:46 AM CDT Sexual Orientation Not on file Last Filed Vital Signs Vital Sign Reading Time Taken Comments Blood Pressure 134/84 02/15/2025 10:11 AM CDT Pulse 104 02/15/2025 10:11 AM CDT Temperature 36.5 C (97.7 F) 02/15/2025 10:11 AM CDT Respiratory Rate 16 02/15/2025 10:11 AM CDT Oxygen Saturation 94% 02/15/2025 10:11 AM CDT Inhaled Oxygen Concentration - - Weight 84 kg (185 lb 1.6 oz) 02/15/2025 10:11 AM CDT Height 160 cm (5' 3) 02/15/2025 10:11 AM CDT Body Mass Index 32.79 02/15/2025 10:11 AM CDT Plan of Treatment Upcoming Encounters Date Type Department Care Team (Late st Contact Info) Description 08/16/2025 10:15 AM CDT Office Visit [facility] [address] [address] Kaushal Scott MD [address] [place] [address] Health Maintenance Due Date Last Done Comments Zoster Immunization (1 of 2) 1990 DEXA Bone Density 06/01/2013 06/01/2011, 06/01/2011 Respiratory Syncytial Virus (RSV) Immunization (Adult) (1 - 1-dose 75+ series) 2015 SARS-COV-2 Immunization ( season) 2024 09/15/2021, 01/03/2021, 12/06/2020 Hepatitis C Virus (HCV) Screening Completed 01/03/2016 Pneumococcal Immunization (50+ years) Completed 11/28/2016, 11/28/2016, 11/11/2009, Additional history exists Pneumococcal Immunization Combined Discontinued 11/28/2016, 11/28/2016, 11/11/2009, Additional history exists DTaP/Tdap/Td Immunization Discontinued 08/31/2019, TdaP Immunization Completed 08/31/2019 Influenza Immunization Completed 4, 10/29/2023, 10/12/2022, Additional history exists Hepatitis B Immunization Aged Out No longer eligible based on patient's age to complete this topic Human Papillomavirus (HPV) Immunization Aged Out No longer eligible based on patient's age to complete this topic Meningococcal Immunization (ACWY) Aged Out No longer eligible based on patient's age to complete this topic Rotavirus Immunization Aged Out No lo nger eligible based on patient's age to complete this topic Procedures Procedure Name Priority Date/Time Associated Diagnosis Comments CBC WITH AUTO DIFF OH Routine 02/15/2025 10:57 AM CDT IMMUNOGLOBULIN IGA, IGG & IGM QUANT Routine 02/15/2025 10:57 AM CDT Hypogammaglobuline deisy (HCC) HEPATITIS PANEL ACUTE (AHP) Routine 01/03/2016 9:26 AM ALIGNMENT TECHNICIAN Transaminitis GRIS BONE DENSITOMETRY AXIAL SKELETON Routine 06/01/2011 from Last 3 Months or Most Recently Relevant to Health Maintenance Results * (ABNORMAL) CBC WITH AUTO DIFF OH (02/15/2025 10:57 AM CDT) WBC 9.8 4.0 - 10.0 10*3/uL [facility] HGB 13.6 11.2 - 15.7 g/dL [facility] HCT 42.0 34.1 - 44.9 % [facility] PLT 226 163 - 369 10*3/uL [facility] MPV 10.1 9.4 - 12.4 fL [facility] RBC 4.51 3.93 - 5.22 10*6/uL [facility] MCV 93 79 - 95 fL [facility] MCH 30.2 25.6 - 32.2 pg [facility] MCHC 32.4 32.2 - 36.5 g/dL [facility] RDW 16.1(H) 11.6 - 14.4 % [facility] Neutrophils % 70.0(H) 36.0 - 66.0 % [facility] Lymphocytes % 19.6 19.0 - 40.0 % [facility] Monocytes % 7.2 4.1 - 12.1 % [facility] Eosinophils % 2.4 0.0 - 3.5 % [facility] Basophils % 0.4 0.0 - 1.0 % [facility] Absolute Neutrophils 6.8(H) 1.4 - 6.6 10*3/uL [facility] Absolute Lymphocytes 1.9 0.8 - 4.0 10*3/uL [facility] Absolute Monocytes 0.7 0.2 - 1.2 10*3/uL [facility] Absolute Eosinophils 0.2 0.0 - 0.4 10*3/uL [facility] Absolute Basophils 0.0 0.0 - 0.1 10*3/uL [facility] [facility] 02/15/2025 10:5 7 AM CDT Jossy Mendoza APRN, RUBY ENGINEER LAB SEND OUTS Final Result [facility] [facility] [address] [place] [address], [place] [phone] * IMMUNOGLOBULIN IGA, IGG & IGM QUANT (02/15/2025 10:57 AM CDT) IGG 760 635 - 1,741 mg/dL [facility] IGA 232 66 - 433 mg/dL [facility] IGM 46 45 - 281 mg/dL [facility] Blood 02/15/2025 10:5 7 AM CDT Narrative [facility] - 02/16/2025 3:58 PM CDT Release to patient->Immediate Jossy Mendoza APRN, RUBY ENGINEER CHEMISTRY ORDERABLES Final Result Performing Organization Address City/[facility]/ZIP Co de Phone Number [facility] [address] [place] [address], [place] [phone] * HEPATITIS PANEL ACUTE (AHP) (01/03/2016 9:26 AM ALIGNMENT TECHNICIAN) HEPATITIS A IGM ANTIBODY NON DETECTED NON DETECTED 01/03/2016 5:20 PM ALIGNMENT TECHNICIAN [facility] Comment: IGM Antibodies to HAV not detected. Does not exclude early acute or recovered HAV infection. HEP B CORE AB (IGM) NON DETECTED NON DETECTED 01/03/2016 5:20 PM ALIGNMENT TECHNICIAN [facility] Comment: IGM anti-HBC not detected. Does not exclude the possibility of exposure to or infection with HBV. HEPATITIS B SURFACE ANTIGEN NON DETECTED NON DETECTED 01/03/2016 5:20 PM ALIGNMENT TECHNICIAN [facility] hepatitis C antibody 0.06 <1 S/CO 01/03/2016 5:20 PM ALIGNMENT TECHNICIAN [facility] Comment: Signal/Cutoff ratio < 0.79 is Nondetected Signal/Cutoff ratio 0.80-0.99 is Grayzone Signal/Cutoff ratio > 0.99 is Detected Supplemental assays are recommended if signal/cutoff ratio is >/=1.00. Signal/cutoff ratio result >/= 5.00 is 97% predictive of positivity for recombinant immunoblot assay (RIBA) and will be reported to the [place] Department of Public Health as required. Blood specimen (specimen) Venipuncture / Unknown 01/03/2016 9:26 AM ALIGNMENT TECHNICIAN 01/03/2016 9:26 AM ALIGNMENT TECHNICIAN us Isaias Raya MD HEMATOLOGY ORDERABLES Carol l Result [facility] [address] [place] [address] * [facility] BONE DENSITOMETRY AXIAL SKELETON (06/01/2011) Anatomical Region Laterality Modality BODY N/A Other us Historical Provider IMG DEXA ORDERABLES Final Result from Last 3 Months or Most Recently Relevant to Health Maintenance Insurance MEDICARE [employer] [facility] XXXMEDICARE LIEN Advance Directives * Full Code (Latest Code Status on File) Date Activated Date Inactivated Comments 06/22/2018 2:23 PM 06/23/2018 12:44 PM CPR-Full Tr eatment: FULL ARREST: Attempt Resuscitation/CPR wit intubation and mechanical ventilation. PRE-ARREST: Use entire range of life support measures to stabilize the patient. Care Teams Twx Operator Relationship Specialty Start Date End Date CravenCarlos guzman DO [address] [place] [address] PCP - General Family Medicine 07/04/23 Zechariah Cohen MD Consulting Physician Physical Medicine & Rehabilitation 06/11/16 Kishan Underwood MD Consulting Physician Urology 10/08/16 Davide Borjas MD Consulting Physician General Surgery 05/29/17 Jacob Lambert MD [address] [place] [address] Company Accountant Nephrology 05/30/18
[2025-04-15 20:28] LABS: Alanine Aminotransferase 40 U/L (6-35); Albumin Level 4.2 g/dL (3.5-5.1); Alkaline Phosphatase 114 U/L (38-126); Anion Gap 8 mmol/L (4-12); Aspartate Amino Transferase 69 U/L (14-36); Bilirubin,Total 0.4 mg/dL (0.2-1.3); Blood Urea Nitrogen 27 mg/dL (7-17); Calcium 11.2 mg/dL (8.4-10.2); Carbon Dioxide 28 mmol/L (22-30); Chloride 103 mmol/L (98-107); Cholesterol 220 mg/dL (0-200); Estimated Glomerular Filt Rate 41; Glucose 108 mg/dL (65-110); HDL Direct 37 mg/dL; Potassium 4.2 mmol/L (3.4-5.0); Sodium 139 mmol/L (137-145); Total Protein 7.4 g/dL (6.3-8.2); Triglycerides 480 mg/dL (<150)
[2025-04-15 20:32] LABS: LDL Cholesterol Direct 96 mg/dL
== END 2025-04-15 15:56 | disposition home or self-care (01) ==
LOC: ANHGOSHLAB 15:56
PROVIDERS: PCP Family Medicine; Visit Provider Family Medicine
DX: E07.9 Disorder of thyroid, unspecified (principal); E11.9 Type 2 diabetes mellitus without complications; Z79.4 Long term (current) use of insulin
CPT/HCPCS: 36415; 80053; 80061; 82607; 84443

== ENCOUNTER 2025-04-16 11:53 | Outpatient (NON) | payer MEDICARE, SELFPAY ==
--- OUTSIDE RECORDS SUMMARY | 2025-04-16 11:57 | XMS_ITS | Clinical Summary ---
Author Organization [facility] Address [address] [address] Phone Care Team Providers Care Salvage Repairer Name Role Phone Unavailable Primary Care Provider [...] to complete this topic Insurance Medicare RR [facility] Medicare RR [facility]
--- OUTSIDE RECORDS SUMMARY | 2025-04-16 11:57 | XMS_ITS | Encounter Summary ---
Author Organization [facility] Address [address] [place] [address] Phone Care Team Providers Care Bakery Supervisor Name Role Phone Jose Mace MD, Carlos Primary Care Provider [phone] Encounter Details Date Type Department Care Team (Late st Contact Info) Description 09/11/2019 Orders Only [facility] [place] [address] [place] [address] Jacob Lmabert MD [address] [place] [address] Chronic kidney disease, Stage III (moderate) [...] hyperlipidemia documented in this encounter Care Teams Bakery Supervisor Relationship Specialty Start Date End Date Carlos Garcia Jr., MD [address] [place] [address] [address] [place] [address] PCP - General 09/11/18 12/21/23 documented as of this encounter
--- OUTSIDE RECORDS SUMMARY | 2025-04-16 11:57 | XMS_ITS | Referral Summary ---
Author Organization [facility] Address [address] [place] [address] Care Team Providers Care Sports Book Writer Name Role Phone [place], Carlos Sunny Primary Care Provider Allergies Active [...] (04/12/2021): Added automatically from request for surgery [id number] Lumbosacral radiculopathy 03/02/2021 Spondylolisthesis of lumbar region 03/02/2021 Mixed stress and urge urinary incontinence 10/24 Chronic bilateral low back pain without sciatica 06/15/2019 Calculus of gallbladder with chronic 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 obstruction 06/06/2017 Atherosclerotic heart diseas e of [place] coronary artery without angina pectoris 02/18/2017 Neuropathy [...] on file Legal Sex Female 6:30 AM HAND REAMER Gender Identity Female 02/17/2021 4:22 PM CDT [...] on file Medical Devices Implanted Type Area Agricultural Service Technician Device Identifier Shelf Expiration Date Model / Serial / Lot Spinal Graft Tech [id number] Magnifuse 5x1cm Spine Cervical Posterior Graft Bone Demineralized - [id number] - [id number] Implanted:Qty: 1 on 04/25/2021 by Ar Nova MD PhD at [facility] N/A: Thoracic-L umbar Spine [employer] Inc 01/17/2023 [id number] / [id number] / [employer] [id number] Tissue Bone Void Filler Acupac Plus 10cc - [id number] - [id number] Implanted:Qty: 1 on 04/25/2021 by Ar Nova MD PhD at [facility] N/A: Thoracic-L umbar Spine [employer] 05/11/2025 [id number] / [employer] [id number] Creo Amp Polyaxial Thread Tulip Spine Transfacet Screw Bone Cocr - [id number] Implanted:Qty: 4 on 04/25/2021 by Andrea Bruno MD at [facility] N/A: Spine Lumbar [employer] [id number] / / [employer] 1134.001 Creo Spinal Cap Locking Nonsterile Mis - [id number] Implanted:Qty: 4 on 04/25/2021 by Andrea Bruno MD at [facility] [employer] 1134.0010 / / [employer] 1119.1435 Creo Creo Amp 6-5mm 35mm Modular Spine Cortical Screw Bone - [id number] Implanted:Qty: 4 on 04/25/2021 by Andrea Bruno MD at [facility] N/A: Spine Lumbar [employer] 1119.1435 / / [employer] 193.122 Rise [id number] 10d Lordotic Spacer Spinal Nonsterile - [id number] Implanted:Qty: 1 on 04/25/2021 by Andrea Bruno MD at [facility] N/A: Spine Lumbar [employer] 193.122 / / [employer] 1119.7035 Creo 5.5mm 35mm Curve Ney Spinal Titanium - [id number] Implanted:Qty: 2 on 04/25/2021 by Andrea Bruno MD at [facility] N/A: Spine Lumbar [employer] 1119.7035 / / Insurance MEDICARE [address] [address] [address] MEDICARE [facility]LY [facility] Advance Directives For more information, please contact: [phone] Documents on File Type Date Recorded Patient Manager Manufacturing Expl anation ADVANCE DIRECTIVE 04/19/2021 7:41 AM ADVANCE DIRECTIVE 04/20/2020 12:00 AM DENISHA R OF LYE MACHINE OPERATOR FINANCIAL/MEDICAL * Full Code (Latest Code Status on File) Date Activated Date Inactivated Comments 04/25/2021 8:13 PM 04/27/2021 2:26 PM Care Teams Sports Book Writer Relationship Specialty Start Date End Date Carlos Manzanares DO PCP - General Family Practice 10/30/19
--- OUTSIDE RECORDS SUMMARY | 2025-04-16 11:57 | XMS_ITS | Clinical Summary ---
Author Organization [facility] Address [address] [facility] [place] [address] Care Team Providers Care Nca Certified Concierge Name Role Phone Carlos Manzanares Charlene Primary Care Provider [phone] Source Comments [facility],non-owned Affiliates and Associated Physician Practices is amultiple site organization consisting of ambulatory clinics and hospital sitesin [place], [place], [place] and [place]. This disclosure is being madepursuant to the Care Everywhere program and may not contain all information available regarding this patient. Last updated 18.[employer] [facility] Allergies Active Allergy Reactions Criticality Noted Date [...] Comments Blood Pressure 136/74 12/23/2020 12:28 PM SANDER AND POLISHER Pulse 97 12/23/2020 12:28 PM SANDER AND POLISHER Temperature - - Respiratory Rate 18 12/23/2020 12:28 PM SANDER AND POLISHER Oxygen Saturation 98% 12/23/2020 12:28 PM SANDER AND POLISHER Inhaled Oxygen Concentration - - Weight 83.9 kg (185 lb) 09/28/2020 11:03 AM SANDER AND POLISHER Height 160 cm (5' 3) 09/28/2020 11:03 AM SANDER AND POLISHER Body Mass Index 32.77 09/28/2020 11:03 AM SANDER AND POLISHER Plan of Treatment Health Maintenance Due Date [...] Insurance MEDICARE SUPPLEMENT PAYOR GENERIC MEDICARE [facility] Address: [facility] [id number] [place] [address] Care Teams Nca Certified Concierge Relationship Specialty Start Date End Date Carlos Manzanares DO PCP - General Family Medicine 09/06/20
--- OUTSIDE RECORDS SUMMARY | 2025-04-16 11:57 | XMS_ITS ---
Author Organization [facility] Address [address] [place], [place] [id number] Care Team Providers Care Ethanol Quality Leader Name Role Phone RUY ALEXIS Unavailable [phone] Jose Luis Carey Unavailable Unavailable REASON FOR VISIT *General care Vital Signs Height 63.00 in 02/16/2025 Weight 182 lbs 02/16/2025 BMI 32.24 kg/m2 02/16/2025 Height-cm 160.02 cm 02/16/2025 Weight-kg 82.55 kg 02/16/2025 Encounters Encounter Location Date Provider Diagnosis [facility] [address] [place], [place] [id number] 02/16/2025 RUY ALEXIS Fungal infection of nail B35.1 ; Pain in right toe(s) M79.674 ; Pain in left toe(s) M79.675 and 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, bilateral legs I70.203 Assessments Encounter Date Diagnosis (ICD Code) Assessment Notes Treatment Notes Treatment Clinical Notes Section Notes 02/16/2025 Fungal infection of nail (ICD-10 - B35.1) 02/16/2025 Pain in right toe(s) (ICD-10 - M79.674) 02/16/2025 Pain in left toe(s) (ICD-10 - M79.675) 02/16/2025 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, bilateral legs (ICD-10 - I70.203) 02/16/2025 Other Nails 1-5 Bilateral were debrided extensively with nail nippers and emery board, reducing length and girth to pink healthy tissue with any subungual debris and necrotic tissue removed Plan Of Treatment Treatment Notes Assessment Notes Other Nails 1-5 Bilateral were debrided extensively with nail nippers and emery board, reducing length and girth to pink healthy tissue with any subungual debris and necrotic tissue removed Next Appt Details Follow Up: 9 weeks, Reason: Provider Name:RUY NOLASCO CHRISTINA, 05/04/2025 11:40:00 AM, [address], [place], [place], [id number], Progress Notes * NICOLE PEARL KDOB:02/1941 (84 yo F)Acc No.[id number]:02/16/2025 Patient: Dinah NICOEL SCHMIDT Provider: Angie Alexis DPM :1940 A ge:84 Y S ex:Female Date:02/16/2025 Address:[address] [place], [place] [id number] Subjective: * Chief Complaints: * 1 . *General care. * HPI: H PI: General care P atient presents to the office for diabetic foot care. Patient states that their nails are thickened, elongated and painful. Patient states that it is aggravated by shoe gear. Onset is gradual., Patient denies taking prescription blood thinners but does take a daily aspirin., Date last seen by Dr. Carey was October 2024. I nitials MATTHIEUR, . * ROS: G eneral / Constitutional: Patient denies c hange in appetite, fatigue, chills, fever.? C ardiovascular: Chest pain d enies. N eurologic: Loss of use of extremity d enies. * Medical History: M edical History Verified. * Family History: M other: PRN - Mother: :: Cancer,,known absent . S ister: SIB - Sister: . * Social History: M igrated Social History: M igrated Social History: History of tobacco use : , Smoking Status : Never used tobacco. * Medications: N one Objective: * Vitals: W t: 182 lbs, Wt-k.55 kg, Ht: 63.00 in, Ht-cm: 160.02 cm, BMI: 32.24 Index, Body Surface Area: 1.91. * Examination: P hysical Examination: Gen: T he patient is awake, alert, well developed, well groomed and well nourished. They are in no apparent distress. . Musc: F oot structure is normal bilateral. Muscle strength is 5/5 to all joints bilaterally. There is no pain on palpation. . Derm: T here is absent hair growth on bilateral feet. There are pigmentary changes of bilateral foot. The skin color is red. The skin texture is thin and shiny. Distal cooling noted in bilateral feet. Nails are thick, discolored, and dystrophic with subungual debris. They are painful to palpation. . Neuro: G rossly intact to light touch bilateral . Vasc: P osterior tibialis pulse 0/4 bilaterally. Dorsalis pedis pulse 0/4 bilaterally. No edema noted. Capillary fill time > 3 seconds to all digits. . Assessment: * Assessment: 1. F ungal infection of nail - B35.1 (Primary) 2 . P ain in right toe(s) - M79.674 3 . P ain in left toe(s) - M79.675 4 . U nspecified atherosclerosis of big sandy arteries of extremities, bilateral legs - I70.203 Plan: * Treatment: * Immunizations: Immunization record has been reviewed and updated. * Procedure Codes: 1 1721 DEBRIDE NAIL, 6 OR MORE, Modifiers: Q8 * Follow Up: 9 weeks * Billing Information: * Visit Code: * Procedure Codes: 00886 DEBRIDE NAIL, 6 OR MORE. Modifiers: Q8 * Electronic signature of RUY ALEXIS DPM on 04/16/2025 at 11:57 AM CDT Sign off status: Pending * Provider: Angie Alexis DPM Date: 0 02/16/2025 Generated for Emmanuel ramos/Sid/Gail on: 0 04/16/2025 11:57 AM CDT History and Physical Notes * HPI (History of Present Illness) Category Sub-Category Detail Notes Category Not es HPI General care Patient presents to the office for diabetic foot care. Patient states that their nails are thickened, elongated and painful. Patient states that it is aggravated by shoe gear. Onset is gradual., Patient denies taking prescription blood thinners but does take a daily aspirin., Date last seen by Dr. Carey was October 2024. Initials JMR, Examination Category Sub-Category Detail Notes Category Not es Physical Examination Gen: The patient is awake, alert, well developed, well groomed and well nourished. They are in no apparent distress. Vasc: Posterior tibialis p ulse 0/4 bilaterally. Dorsalis pedis pulse 0/4 bilaterally. No edema noted. Capillary fill time > 3 seconds to all digits. Neuro: Grossly intact to li ght touch bilateral Musc: Foot structure is no rmal bilateral. Muscle strength is 5/5 to all joints bilaterally. There is no pain on palpation. Derm: There is absent hair growth on bilateral feet. There are pigmentary changes of bilateral foot. The skin color is red. The skin texture is thin and shiny. Distal cooling noted in bilateral feet. Nails are thick, discolored, and dystrophic with subungual debris. They are painful to palpation.
--- OUTSIDE RECORDS SUMMARY | 2025-04-16 11:57 | XMS_ITS | CONTINUITY OF CARE DOCUMENT ---
Author Name wesley olson Address Unknown Organization [facility] Address [address] [place] [address] Phone [phone] Care Team Providers Care Pega Developer Name Role Phone Say Alves MD Unavailable Huber CAN INTAKE WORKER-BC, Kylah L Unavailable [phone] Huber CAN INTAKE WORKER-BC, Kylah L Unavailable PROBLEMS Condition Status Date Provider Notes HTN active Say Alves MD Family History Coronary Hear t Disease male < 55: active ? Say Alves MD Family History of Sudden Cardiac : active ? Say Alves MD Hyperlipidemia active Say Alves MD PVD active Say Alves MD CKD active Say Alves MD Neuropathy active Say Alves MD CAD, mild active Say Alves MD ENCOUNTERS Date Type Provider Location Encounter Diagnosis - In-person encounter Office Visit Say Alves MD [place] [facility] CAD, mild - In-person encounter Office Visit Say Alves MD [place] [facility] - In-person encounter Office Visit Say Alves MD [place] [facility] HTNFamily History Coronary Heart Disease male < 55:Family History of Sudden Cardiac :Hyperlipidem iaPVDCKDNeuropathy VITAL SIGNS Date Observation Value Provider Body Mass Index (Ratio) 24.76 kg/m2 Nico Gonzales blood pressure, diastolic 76 mm[Hg] Ela Castillo blood pressure, systolic 119 mm[Hg] Hui Castillo oxygen saturation, oximetry 98 % Deana Castillo respiratory rate E&M 18 /min Forest Castillo pulse rate 83 /min Deana montelongo weight E&M 148.8 [lb_av] Deana avalos height [...] Policy type / Coverage type Jackelin red libertarian ID [facility] [id number] RAILROAD MEDICARE Medicare [id number] ADVANCE DIRECTIVES Name Date DISCUSSED - NO [...] Name Provider Procedure Notes S venu SNOMED-CT: 65933036 Physical Exam, Performed: Pulse Exam of Foot Say Alves MD completed SNOMED-CT: 443077755 062044 Current Medications Documented Say Alves MD completed SNOMED-CT: 900445731 535327 Current Medications Documented Say Alves MD completed SNOMED-CT: 77311183 Physical Exam, Performed: Pulse Exam of Foot Say Alves MD completed EKG Say Alves MD completed SNOMED-CT: 450085980 477886 Current Medications Documented Say Alves MD completed
--- OUTSIDE RECORDS SUMMARY | 2025-04-16 11:57 | XMS_ITS | Clinical Summary ---
Author Organization [facility] Address [address] [place] [address] Care Team Providers Care Dance Costume Designer Name Role Phone [place], Carlos Sunny Primary Care Provider Allergies Active [...] (04/12/2021): Added automatically from request for surgery [id number] Lumbosacral radiculopathy 03/02/2021 Spondylolisthesis of lumbar region 03/02/2021 Mixed stress and urge urinary incontinence 10/24 Chronic bilateral low back pain without sciatica 06/15/2019 Calculus of gallbladder with chronic 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 obstruction 06/06/2017 Atherosclerotic heart diseas e of [place] coronary artery without angina pectoris 02/18/2017 Neuropathy [...] on file Legal Sex Female 6:30 AM SENIOR ACCOUNT DIRECTOR Gender Identity Female 02/17/2021 4:22 PM CDT [...] 11/28/2016, 11/2009 Medical Devices Implanted Type Area Director Pharmacovigilance Device Identifier Shelf Expiration Date Model / Serial / Lot Spinal Graft Tech [id number] Magnifuse 5x1cm Spine Cervical Posterior Graft Bone Demineralized - [id number] - [id number] Implanted:Qty: 1 on 04/25/2021 by Ar Nova MD PhD at [facility] N/A: Thoracic-L umbar Spine [employer] Inc 01/17/2023 [id number] / [id number] / [employer] [id number] Tissue Bone Void Filler Acupac Plus 10cc - [id number] - [id number] Implanted:Qty: 1 on 04/25/2021 by Ar Nova MD PhD at [facility] N/A: Thoracic-L umbar Spine [employer] 05/11/2025 [id number] / [employer] 7146.011 Creo Amp Polyaxial Thread Tulip Spine Transfacet Screw Bone Cocr - [id number] Implanted:Qty: 4 on 04/25/2021 by Andrea Bruno MD at [facility] N/A: Spine Lumbar [employer] 7146.0110 / / [employer] 1134.001 Creo Spinal Cap Locking Nonsterile Mis - [id number] Implanted:Qty: 4 on 04/25/2021 by Andrea Bruno MD at [facility] [employer] 1134.0010 / / [employer] 1119.1435 Creo Creo Amp 6-5mm 35mm Modular Spine Cortical Screw Bone - [id number] Implanted:Qty: 4 on 04/25/2021 by Andrea Bruno MD at [facility] N/A: Spine Lumbar [employer] 1119.1435 / / [employer] 193.122 Rise [id number] 10d Lordotic Spacer Spinal Nonsterile - [id number] Implanted:Qty: 1 on 04/25/2021 by Andrea Bruno MD at [facility] N/A: Spine Lumbar [employer] 193.122 / / [employer] 1119.7035 Creo 5.5mm 35mm Curve Ney Spinal Titanium - [id number] Implanted:Qty: 2 on 04/25/2021 by Andrea Bruno MD at [facility] N/A: Spine Lumbar [employer] 1119.7035 / / Insurance MEDICARE RAILROAD [facility] MEDICARE RAILROAD [facility] Advance Directives For more information, please contact: [phone] Documents on File Type Date Recorded Patient Project Drilling Engineer Expl anation ADVANCE DIRECTIVE 04/19/2021 7:41 AM ADVANCE DIRECTIVE 04/20/2020 12:00 AM DENISHA R OF HEAD OF MARKETING FINANCIAL/MEDICAL * Full Code (Latest Code Status on File) Date Activated Date Inactivated Comments 04/25/2021 8:13 PM 04/27/2021 2:26 PM Care Teams Dance Costume Designer Relationship Specialty Start Date End Date Carlos Manzanares DO PCP - General Family Practice 10/30/19
--- OUTSIDE RECORDS SUMMARY | 2025-04-16 11:58 | XMS_ITS | Continuity of Care Document ---
Author Organization [facility] Address [address] [place] [address] Phone Care Team Providers Care Oxygen Equipment Aide Name Role Phone Tracee Sol OD Unavailable [...] route every day 81 MG - Active Tylenol-Codeine #3 300 mg-30 mg tablet take 1 tablet by oral route every 6 hours as needed - No Longer Active amlodipine 5 mg tablet take 1 tablet by oral route every day 5 MG - No Longer Active gabapentin 100 mg [...] Diagnoses Date Provider Providers Copied on Encounter [facility], [facility], [address] [place] [address], [id number] , [place] tel: [phone] [facility] no problems with vision and no complaints (chief complaint)P t. declines Wellness/Sc reening photos (chief complaint)n o problems with vision and no complaints (chief complaint)P t. declines Wellness/Sc reening photos (chief complaint) Dry eye syndrome of bilateral lacrimal glandsPresbyopiaH ypermetropia, left eyeRegular astigmatism, bilateralPresence of intraocular lens 9 [facility]. [address] [place] [address], [id number] , [place]. tel: [phone] [facility], [facility], [facility] [place], [place], [id number] , [place] tel: [phone] [facility] no problems with vision and no complaints (chief complaint)n o problems with vision and no complaints (chief complaint) Dry eye syndrome of right lacrimal glandDry eye syndrome of left lacrimal glandHypermetropi a, bilateralRegular astigmatism, bilateralPresbyop iaPresence of intraocular lens 8 Avinash Zheng. [address] [place] [address], [place], [place], [id number] , [place]. tel: [phone] Referring Provider: Linden Chang, [address] [place] [address], [place], [address] . tel:[phone] [facility], [address] [place] [address], [id number] , [place] tel: [phone] [facility] No Information 7 Avinsah Zheng. [address] [place] [address], [place], [place], [id number] , [place]. tel: [phone] Referring Provider: Norm Degroot, [address] [place] [address], [place], [address] . tel:[phone] [facility], [address] [place] [address], [id number] , [place] tel: [phone] [facility] irritation, scratchy, vision improved (chief complaint)i rritation, scratchy, vision improved (chief complaint) Presence of intraocular lensCataract extraction status, left eyeCataract extraction status, right eye 7 Avinash Zheng. [address] [place] [address], [place], [place], [id number] , [place]. tel: [phone] Referring Provider: Linden Chang, [address] [place] [address], [address] . tel:[phone] [facility], [address] [place] [address], [id number] , [place] tel: [phone] [facility] burning (chief complaint)b urning (chief complaint) Dry eye syndrome of bilateral lacrimal glandsPresence of intraocular lens 7 Bettie Almonte. [address] [place] [address], [place], [id number] , [place]. tel: [phone] [facility], [address] [place] [address], [id number] , [place] tel: [phone] [facility] blurry vision OS (chief complaint)f eels better today, last night was pain OS (chief complaint)v ision is improved OD (chief complaint)b lurry vision (chief complaint)f eels better today, last night was pain (chief complaint)v ision is improved (chief complaint) No Information Raj Cheatham. [address] [place] [address], [id number] , [place]. tel: [phone] Referring Provider: Linden Chang, [address] [place] [address], [address] . tel:[phone] [facility], [address] [place] [address], [id number] , [place] tel: [phone] [facility] No Information Avinash Zheng. [address] [place] [address], [id number] , [place]. tel: [phone] Referring Provider: Linden Chang, [address] [place] [address], [address] . tel:[phone] [facility], [address] [place] [address], [id number] , [place] tel: [phone] [facility] No Information Avinash Zheng. [address] [place] [address], [id number] , [place]. tel: [phone] Referring Provider: Norm Degroot, [address] [place] [address], [address] . tel:[phone] [facility], [address] [place] [address], [id number] , [place] tel: [phone] [facility] blurry vision OD (chief complaint)d enies pain or discomfort OD (chief complaint)n ot as clear as OD OS (chief complaint)b lurry vision (chief complaint)d enies pain or discomfort (chief complaint)n ot as clear as OD (chief complaint) No Information 7 Avinash Zheng. [address] [facility], [place], [place], [id number] , [place]. tel: [phone] Referring Provider: Linden Chang, [address] [place] [address], [address] . tel:[phone] [facility], [facility], [address] [place] [address], [place], [id number] , [place] tel: [phone] [facility], [facility] No Information 7 Avinash Norm. [address] [facility], [place], [place], [id number] , [place]. tel: [phone] Referring Provider: Norm Degroot, [address] [place] [address], [address] . tel:[phone] [facility], [facility], [address] [place] [address], [id number] , [place] tel: [phone] [facility] decreased vision (chief complaint)d ecreased vision (chief complaint) Presbyopia 7 Avinash Zheng. [address] [place], [place], [id number] , [place]. tel: [phone] Referring Provider: Linden Chang, [address] [place], [address] . tel:[phone] [facility], [facility], [address] [place] [address], [id number] , [place] tel:[phone] [facility] blurry vision (chief complaint)b lurry vision (chief complaint) Age-related nuclear cataract, bilateral 6 Avinash Zheng. [address] [facility], [place], [place], [id number] , [place]. tel: [phone] Referring Provider: Linden Chang, [address] [place] [address], [place], [address] . tel:[phone] [facility], [address] [place] [address], [place], [id number] , [place] tel:[phone] [facility] no problems with vision and no complaints (chief complaint)n o problems with vision and no complaints (chief complaint) PresbyopiaOther and combined forms of senile cataractMacular puckering of retina 5 Raj Cheatham. [address] [place] [address], [place], [place], [id number] , [place]. tel: [phone] Referring Provider: Linden Chang, [address] [place] [address], [place], [address] . tel:[phone] [facility], [address] [place] [address], [place], [id number] , [place] tel:[phone] [facility] No Information 4 Avinash Zheng. [address] [place] [address], [place], [place], [id number] , [place]. tel: [phone] Referring Provider: Linden Chang, [address] [place] [address], [place], [address] . tel:[phone] [facility], [address] [place] [address], [id number] , [place] tel:[phone] [facility] floaters are stable (chief complaint) Other and combined forms of senile cataractSenile nuclear sclerosisVitreous degenerationMacul ar puckering of retinaPresbyopia 3 Raj Cheatham. [facility] [facility], [place], [place], [id number] , [place]. tel: [phone] Referring Provider: Linden Chang, [address] [place] [address], [place], [address] . tel:[phone] [facility], [address] [place] [address], [id number] , tel: [phone] [facility] floater (chief complaint) Vitreous degenerationVitre ous degeneration Oct-0 3 Raj Cheatham. [address] [place] [address], [id number] , . tel: [phone] Referring Provider: Linden Chang, [address] [place] [address], [address] . tel:[phone] [facility], [address] [place] [address], [id number] , tel: [phone] [facility] no problems with V/A and no complaints (chief complaint) Other and combined forms of senile cataractSenile nuclear sclerosisOther and combined forms of senile cataractSenile nuclear sclerosis Sep-1 3 Avinash Zheng. [address] [place] [address], [id number] , . tel: [phone] Family History Family Member Type Diagnosis Age At Onset Mother Problem (finding) HBP Problem (finding) No Family hist ory of Macular Degeneration Mother Problem (finding) cataract Problem (finding) No Family history of Gl aucoma Problem (finding) No Family history of Di abetes mellitus Payers Payer name Insurance type Covered constitution party ID Walter pacheco(s) RR Medicare MB [id number] [facility] [id number] Social History Type Description Quantity Date Captured [...] Follow up - 1 yaer w ith [facility] for Ref T&D Impression/Plan - Jonnathan th lens implants look fine. Cont. Pred Forte gtt BID OU x 6 weeks after surgery. Distance vision is great. Can use +2.25 or +2.50 OTC readers. Return in 1 year or sooner if any problems. Use OTC Art. Tears for irritation; should improve with time as the eyes heal. Follow up - as sched c [facility] for P O 2/3 Impression/Plan - Se e no signs of infection or FB OU. Think pt is experiencing dryness and should START: Art Tears QID OU and CONTINUE: Pred BID OU. F/u in [facility] as sched for PO 2/3. Follow up [...] - Return in 1 year w perico [facility] for Ref T & D. Related to NS Cataract Assessments Type Assessment Date assessment Dry eye syndrome of bilateral la crimal glands assessment Presbyopia assessment Hypermetropia, left eye 019 assessment Regular astigmatism, bilateral J assessment Presence of intraocular lens Apr Patient Care Teams Name Effective Dates (start - stop) Status Members No Information
--- OUTSIDE RECORDS SUMMARY | 2025-04-16 11:58 | XMS_ITS | Patient Health Record ---
Author Organization [facility] Address [address] [id number] Care Team Providers Care Solar Thermal Installer Name Role Phone RUY ORTA Unavailable [phone] Jose Luis Carey Unavailable Unavailable Allergies No Known Allergies Reason For Referral No Information Vital Signs Height-cm 160.02 cm 02/16/2025 Weight-kg 82.55 kg 02/16/2025 Height 63.00 in 02/16/2025 Weight 182 lbs 02/16/2025 BMI 32.24 kg/m2 02/16/2025 Encounters Encounter Location Date Provider Diagnosis [facility] [place] [address] [id number] 02/16/2025 RUY ORTA Fungal infection of nail B35.1 ; Pain in right toe(s) M79.674 ; Pain in left toe(s) M79.675 and Unspecified atherosclerosis of [place] arteries of extremities, bilateral legs I70.203 [facility] [place] [address] [id number] 06/15/2024 RUY ORTA Fungal infection of nail B35.1 ; Pain in right toe(s) M79.674 ; Pain in left toe(s) M79.675 and Unspecified atherosclerosis of [place] arteries of extremities, bilateral legs I70.203 [facility] [place] [address] [place] [id number] 09/28/2024 RUY ORTA Fungal infection of nail B35.1 ; Pain in right toe(s) M79.674 ; Pain in left toe(s) M79.675 and Unspecified atherosclerosis of [place] arteries of extremities, bilateral legs I70.203 [facility] [address] [place], [place] [id number] 12/01/2024 RUY ORTA Fungal infection of nail B35.1 ; Pain in right toe(s) M79.674 ; Pain in left toe(s) M79.675 and Unspecified atherosclerosis of [place] arteries of extremities, bilateral legs I70.203 Assessments Encounter Date Diagnosis (ICD Code) Assessment Notes Treatment Notes Treatment Clinical Notes Section Notes 06/15/2024 Fungal infection of nail (ICD-10 - B35.1) 09/28/2024 Fungal infection of nail (ICD-10 - B35.1) 12/01/2024 Fungal infection of nail (ICD-10 - B35.1) 02/16/2025 Fungal infection of nail (ICD-10 - B35.1) 02/16/2025 Pain in right toe(s) (ICD-10 - M79.674) 12/01/2024 Pain in right toe(s) (ICD-10 - M79.674) 09/28/2024 Pain in right toe(s) (ICD-10 - M79.674) 06/15/2024 Pain in right toe(s) (ICD-10 - M79.674) 06/15/2024 Pain in left toe(s) (ICD-10 - M79.675) 09/28/2024 Pain in left toe(s) (ICD-10 - M79.675) 12/01/2024 Pain in left toe(s) (ICD-10 - M79.675) 02/16/2025 Pain in left toe(s) (ICD-10 - M79.675) 02/16/2025 Unspecified atherosclerosis of [place] arteries of extremities, bilateral legs (ICD-10 - I70.203) 12/01/2024 Unspecified atherosclerosis of [place] arteries of extremities, bilateral legs (ICD-10 - I70.203) 09/28/2024 Unspecified atherosclerosis of [place] arteries of extremities, bilateral legs (ICD-10 - I70.203) 06/15/2024 Unspecified atherosclerosis of [place] arteries of extremities, bilateral legs (ICD-10 - I70.203) 02/16/2025 Other Nails 1-5 Bilateral were debrided extensively with nail nippers and emery board, reducing length and girth to pink healthy tissue with any subungual debris and necrotic tissue removed 06/15/2024 Other Nails 1-5 Bilateral were debrided extensively with nail nippers and emery board, reducing length and girth to pink healthy tissue with any subungual debris and necrotic tissue removed 09/28/2024 Other Nails 1-5 Bilateral were debrided extensively with nail nippers and emery board, reducing length and girth to pink healthy tissue with any subungual debris and necrotic tissue removed 12/01/2024 Other Nails 1-5 Bilateral were debrided extensively with nail nippers and emery board, reducing length and girth to pink healthy tissue with any subungual debris and necrotic tissue removed Plan Of Treatment Next Appt Details Provider Name:RUY NOLASCO CHRISTINA, 05/04/2025 11:40:00 AM, [address], [place], [place], [id number], Insurance Providers Payer Name Payer Address Payer Phone Subscriber Number Group Number Insured Name Patient Relationship to Insured Coverage Start Date Coverage End Date Medicare Piotr Burgos GBA [id number] [address] [address] [place], [place] [phone] [id number] NICOLE LAWSON Self - patient is the insured [facility] ([facility] ATTN CLAIMS [address] [place] [address] [id number] NICOLE LAWSON Self - patient is the insured
--- OUTSIDE RECORDS SUMMARY | 2025-04-16 11:58 | XMS_ITS | Clinical Summary ---
Author Organization [facility] Address [address] [place] [address] Phone Care Team Providers Care Buck Presser Name Role Phone Unavailable Primary Care Provider [...]
--- OUTSIDE RECORDS SUMMARY | 2025-04-16 11:58 | XMS_ITS | Encounter Summary ---
Author Organization [facility] Address [address] [place] [address] Phone Care Team Providers Care Log Chain Worker Name Role Phone Zechariah Cohen MD Unavailable [phone] Kishan Underwood MD Unavailable Davide Borjas MD Unavailable Un available Jacob Lambert MD Unavailable Carlos Manzanares DO Primary Care Provider [phone] Reason for Visit * Reason Onset Date Comments Patient Outreach 08/09/2020 [employer] Encounter Details Date Type Department Care Team (Late st Contact Info) Description 08/09/2020 [facility] [address] [place] [address] Provider, None [place] Patient Outreach ([employer]) Social History Tobacco [...] CDT Office Visit [facility] [address] [phone] Kaushal Scott MD [address] [place] [address] documented as of this encounter Visit Diagnoses Not on filedocumented in this encounter Additional Health Concerns Assessment Noted Time PHQ-9 Depression Total Score: 0 03/16/20 19 11:00 AM CDT documented as of this encounter Care Teams Log Chain Worker Relationship Specialty Start Date End Date Carlos Manzanares DO [address] [place] [address] PCP - General Family Medicine 07/04/23 Zechariah Cohen MD Consulting Physician Physical Medicine & Rehabilitation 06/11/16 Kishan Underwood MD Consulting Physician Urology 10/08/16 Davide Borjas MD Consulting Physician General Surgery 05/29/17 Jacob Lambert MD [address] [place] [address] Shank Breaker Nephrology 05/30/18 documented as of this encounter
--- OUTSIDE RECORDS SUMMARY | 2025-04-16 11:58 | XMS_ITS | Clinical Summary ---
Author Organization [facility] Address [address] [place] [address] Phone Care Team Providers Care Ccie Name Role Phone Zechariah Cohen MD Unavailable [phone] Kishan Underwood MD Unavailable Davide Borjas [...] AM CDT Lab [facility] [address] [address] Lab, [facility]obulinemia (HCC) 02/15/2025 10:15 AM CDT Office Visit [facility] [address] [address] Jossy Mendoza, BRAKE DRUM MOLDER, FLYER BUILDER Hypogammaglobulinemia (HCC) (Primary Dx) 02/15/2025 Travel from [...] CDT Office Visit [facility] [address] [address] Kaushal Scott MD [address] [place] [address] Health Maintenance Due Date Last [...] PANEL ACUTE (AHP) Routine 01/03/2016 9:26 AM BENCH CHEMIST Transaminitis GRIS BONE DENSITOMETRY AXIAL SKELETON Routine 06/01/2011 from Last 3 Months or Most Recently Relevant to Health Maintenance Results * (ABNORMAL) CBC WITH AUTO DIFF [place] (02/15/2025 10:57 AM CDT) WBC 9.8 4.0 - 10.0 10*3/uL [facility] HGB 13.6 11.2 - 15.7 g/dL [facility] HCT 42.0 34.1 - 44.9 % [facility] PLT 226 163 - 369 10*3/uL [facility] MPV 10.1 9.4 - 12.4 fL [facility] RBC 4.51 3.93 - 5.22 10*6/uL [facility] MCV 93 79 - 95 fL [facility] MCH 30.2 25.6 - 32.2 pg [facility] MCHC 32.4 32.2 - 36.5 g/dL [facility] RDW 16.1(H) 11.6 - 14.4 % [facility] Neutrophils % 70.0(H) 36.0 - 66.0 % [facility] Lymphocytes % 19.6 19.0 - 40.0 % [facility] Monocytes % 7.2 4.1 - 12.1 % [facility] Eosinophils % 2.4 0.0 - 3.5 % [facility] Basophils % 0.4 0.0 - 1.0 % [facility] Absolute Neutrophils 6.8(H) 1.4 - 6.6 10*3/uL [facility] Absolute Lymphocytes 1.9 0.8 - 4.0 10*3/uL [facility] Absolute Monocytes 0.7 0.2 - 1.2 10*3/uL [facility] Absolute Eosinophils 0.2 0.0 - 0.4 10*3/uL [facility] Absolute Basophils 0.0 0.0 - 0.1 10*3/uL [facility] 02/15/2025 10:5 7 AM CDT Jossy Mendoza APRN, FLYER BUILDER LAB SEND OUTS Final Result [facility] [address] [place] [address], [place] [phone] * IMMUNOGLOBULIN IGA, IGG & IGM QUANT (02/15/2025 10:57 AM CDT) IGG 760 635 - 1,741 mg/dL [facility] IGA 232 66 - 433 mg/dL [facility] IGM 46 45 - 281 mg/dL [facility] Blood 02/15/2025 10:5 7 AM CDT Narrative [facility] - 02/16/2025 3:58 PM CDT Release to patient->Immediate Jossy Mendoza APRN, FLYER BUILDER CHEMISTRY ORDERABLES Final Result Performing Organization Address City/[facility]/ZIP Co de Phone Number [facility] [address] [place] [address], [place] [phone] * HEPATITIS PANEL ACUTE (AHP) (01/03/2016 9:26 AM BENCH CHEMIST) HEPATITIS A IGM ANTIBODY NON DETECTED NON DETECTED 01/03/2016 5:20 PM BENCH CHEMIST [facility] Comment: IGM Antibodies to HAV not detected. Does not exclude early acute or recovered HAV infection. HEP B CORE AB (IGM) NON DETECTED NON DETECTED 01/03/2016 5:20 PM BENCH CHEMIST [facility] Comment: IGM anti-HBC not detected. Does not exclude the possibility of exposure to or infection with HBV. HEPATITIS B SURFACE ANTIGEN NON DETECTED NON DETECTED 01/03/2016 5:20 PM BENCH CHEMIST [facility] hepatitis C antibody 0.06 <1 S/CO 01/03/2016 5:20 PM BENCH CHEMIST [facility] Comment: Signal/Cutoff ratio < 0.79 is Nondetected Signal/Cutoff ratio 0.80-0.99 is Grayzone Signal/Cutoff ratio > 0.99 is Detected Supplemental assays are recommended if signal/cutoff ratio is >/=1.00. Signal/cutoff ratio result >/= 5.00 is 97% predictive of positivity for recombinant immunoblot assay (RIBA) and will be reported to the [place] Department of Public Health as required. Blood specimen (specimen) Venipuncture / Unknown 01/03/2016 9:26 AM BENCH CHEMIST 01/03/2016 9:26 AM BENCH CHEMIST us Isaias Raya MD HEMATOLOGY ORDERABLES Carol l Result [facility] [address] [place] [address] * [facility] BONE DENSITOMETRY AXIAL SKELETON (06/01/2011) Anatomical Region Laterality Modality BODY N/A Other us Historical Provider IMG DEXA ORDERABLES Final Result from Last 3 Months or Most Recently Relevant to Health Maintenance Insurance [place] [address] [facility] XXXMEDICARE LIEN Advance Directives * Full Code (Latest Code Status on File) Date Activated Date Inactivated Comments 06/22/2018 2:23 PM 06/23/2018 12:44 PM CPR-Full Tr eatment: FULL ARREST: Attempt Resuscitation/CPR wit intubation and mechanical ventilation. PRE-ARREST: Use entire range of life support measures to stabilize the patient. Care Teams Ccie Relationship Specialty Start Date End Date LeslieCarlos guzman DO [address] [place] [address] PCP - General Family Medicine 07/04/23 Zechariah Cohen MD Consulting Physician Physical Medicine & Rehabilitation 06/11/16 Kishan Underwood MD Consulting Physician Urology 10/08/16 Davide Borjas MD Consulting Physician General Surgery 05/29/17 Jacob Lambert MD [address] [place] [address] Senior Java Engineer Nephrology 05/30/18
[2025-04-16 18:41] LABS: Creatinine Urine 82.1 mg/dL
[2025-04-16 18:44] LABS: MALB Creatinine Ratio 76.2 mg/g (0-30); Microalbumin Urine Random 62.6 mg/L (0-16.7)
== END 2025-04-16 11:54 | disposition home or self-care (01) ==
LOC: ANHGOSHLAB 11:56
PROVIDERS: PCP Family Medicine; Visit Provider Family Medicine
DX: E11.9 Type 2 diabetes mellitus without complications (principal); Z79.4 Long term (current) use of insulin
CPT/HCPCS: 82043

== ENCOUNTER 2025-04-30 08:32 | Outpatient (CLI) | payer MEDICARE, SELFPAY ==
--- NOTE | ~2025-04-30 | US_ITS ---
Limited ABDOMINAL ULTRASOUND (Doppler ultrasound interrogation techniques used as needed for this exa m.) Ordering provider: Mary Carey MD History: . R74.8 - Abnormal levels of other serum enzymes . Comparison: None. FINDINGS: PANCREAS: Normal echotexture and size of the visualized portion. PORTAL VEIN: Hepatopedal flow demonstrated. LIVER: Normal size and echotexture. No focal hepatic lesions or perihepatic fluid collections are roxie ntified. BILIARY DUCTS: No intra or extrahepatic biliary dilation. Common bile duct measures 3 mm in diameter which is normal for patient's age. GALLBLADDER: Surgically removed. RIGHT KIDNEY: Thin cortex is noted measuring 0.8 cm.. FREE FLUID: None visualized within the upper abdomen. IMPRESSION: Thin cortex of the right kidney. Status post surgical removal of the gallbladder. Otherwise, normal r ight upper quadrant ultrasound. Reviewed, dictated and finalized at location A. IMPRESSION: Thin cortex of the right kidney. Status post surgical removal of the gallbladde r. Otherwise, normal right upper quadrant ultrasound.
== END 2025-04-30 08:33 | disposition home or self-care (01) ==
LOC: GOSHIMG 08:34
PROVIDERS: PCP Family Medicine; Visit Provider Family Medicine
DX: R93.421 Abnormal radiologic findings on diagnostic imaging of right kidney (principal); R74.8 Abnormal levels of other serum enzymes; Z90.49 Acquired absence of other specified parts of digestive tract
CPT/HCPCS: 76705

== ENCOUNTER 2025-05-03 14:03 | Outpatient (CLI) | payer MEDICARE, SELFPAY ==
[2025-05-03 19:54] LABS: Basophils Absolute Auto 0.1 K/mm3 (0.0-0.1); Basophils Percent Auto 0.5 % (0.2-1.2); Eosinophils Absolute Auto 0.3 K/mm3 (0-0.3); Hematocrit 41.1 % (37.0-47.0); Immature Granulocyte Absolute 0.03 K/mm3 (0.00-0.031); Immature Granulocyte Percent A 0.3 % (0-0.5); Lymphocytes Absolute Auto 2.13 K/mm3 (0.9-3.2); Lymphocytes Percent Auto 22.6 % (18.3-44.2); Mean Corpuscular HGB Conc 31.6 g/dl (32-36); Mean Corpuscular Hemoglobin 30.7 pg (26-34); Mean Corpuscular Volume 97.2 fl (80-100); Mean Platelet Volume 10.9 fl (7.4-10.4); Monocytes Absolute Auto 0.7 K/mm3 (0.1-0.6); Monocytes Percent Auto 7.8 % (2.6-8.5); Neutrophils Absolute Auto 6.2 K/mm3 (1.3-6.7); Neutrophils Percent Auto 65.8 % (45.5-73.1); Platelet Count Result 215 k/mm3 (150-375); Red Blood Count 4.23 M/mm3 (4.2-5.4); Red Cell Distribution Width 13.6 % (11.5-14.5); White Blood Count 9.4 K/mm3 (4.5-10.0)
[2025-05-03 20:19] LABS: Hemoglobin A1C 6.2 % (<5.7)
[2025-05-12 01:13] LABS: ALT 19 U/L (6-29); Alpha-2-Macroglobulin 163 mg/dL (106-279); Apolipoprotein A1 139 mg/dL (101-198); Fibrosis Score 0.23; Fibrosis Stage F0-F1; GGT 54 U/L (3-65); Haptoglobin 173 mg/dL (43-212); Necroinflammat Act Grade A0; Total Bilirubin 0.3 mg/dL (0.2-1.2)
== END 2025-05-03 14:04 | disposition home or self-care (01) ==
LOC: ANHGOSHLAB 14:04
PROVIDERS: PCP Family Medicine; Visit Provider Family Medicine
DX: N28.9 Disorder of kidney and ureter, unspecified (principal); R74.8 Abnormal levels of other serum enzymes; E11.9 Type 2 diabetes mellitus without complications; Z79.4 Long term (current) use of insulin
CPT/HCPCS: 36415; 81596; 83036; 85025

== ENCOUNTER 2025-09-06 13:37 | Outpatient (CLI) | payer MEDICARE, SELFPAY ==
--- OUTSIDE RECORDS SUMMARY | 2019-04-16 05:45 | XMS_ITS | Continuity of Care Document ---
Author Organization [facility], L TD Address [address] [place] [address] Phone Care Team Providers Care Instrument Calibrator Name Role Phone Tracee Sol OD Unavailable Unavailable Allergies, Adverse Reactions, Alerts Substance Reaction Status Criticality No Known Drug Allergies Active No I nformation Medications Medication Instructions Dosage Effective Dates (start - stop) Status Comments tramadol 50 mg tablet take 1 tablet by oral route every 6 hours as needed 50 MG - Active gabapentin 100 mg capsule take 2 capsule by oral route AM, 1 capsule at noon, and 2 capsules in the evening. - Active Aspirin Low Dose 81 mg tablet,delayed release take 1 tablet by oral route every day 81 MG - Active amlodipine 5 mg tablet take 1 tablet by oral route every day 5 MG - No Longer Active Tylenol-Codeine #3 300 mg-30 mg tablet take 1 tablet by oral route every 6 hours as needed - No Longer Active gabapentin 100 mg capsule take 1 capsule by oral route 3 times every day 100 MG - No Longer Active Procedures Procedure Date REFRACTION EYE EXAM ESTABLISHED PATIENT REFRACTION EYE EXAM ESTABLISHED PATIENT IOL Deluxe Frame Postoperative Exam REFRACTION OPTIONAL UPDATE Postoperative Exam Postoperative Exam CATARACT SURG W/IOL IOL MASTER, PROF COMP ONLY Postoperative Exam CATARACT SURG W/IOL EYE EXAM ESTABLISHED PATIENT, MEDICAL Ma REFRACTION NO UPDATE IOL MASTER Post Operative Kit / Medical Supply By P rescription EYE EXAM ESTABLISHED PATIENT, MEDICAL Fe REFRACTION OPTIONAL UPDATE EYE EXAM ESTABLISHED PATIENT, MEDICAL Ja REFRACTION OPTIONAL UPDATE Vision svcs frames purchases Bifocal Lens Progressive lens per lens Lens Polycarb EYE EXAM ESTABLISHED PATIENT, MEDICAL No REFRACTION OPTIONAL UPDATE Follow Up Ophthalmoscopy Scan Image/ OCT, Retina EYE EXAM ESTABLISHED PATIENT, MEDICAL Oc Extended Ophthalmoscopy FUNDUS PHOTOGRAPHY EYE EXAM, NEW PATIENT MEDICAL 3 Advance Directives Directive Yes / No Effective Date File Name No Information Encounters Encounter Description Practice Location Reason(s) For Visit Diagnoses Date Provider Providers Copied on Encounter [facility], [facility], [facility] [place], [place], [id number] , [place] tel: [phone] [facility] no problems with vision and no complaints (chief complaint)P t. declines Wellness/Sc reening photos (chief complaint) Dry eye syndrome of bilateral lacrimal glandsPresbyopiaH ypermetropia, left eyeRegular astigmatism, bilateralPresence of intraocular lens 9 Sweta Easley. [address] [place], [place], [id number] , [place]. tel: [phone] [facility], [facility], [address], [place], [id number] , [place] tel: [phone] [facility] no problems with vision and no complaints (chief complaint) Dry eye syndrome of right lacrimal glandDry eye syndrome of left lacrimal glandHypermetropi a, bilateralRegular astigmatism, bilateralPresbyop iaPresence of intraocular lens 8 Avinash Zheng. [address] [place], [place], [id number] , [place]. tel: [phone] Referring Provider: Linden Chang, [address] [place] [address], [place], [address] . tel:[phone] [facility], [address] [place] [address], [place], [id number] , [place] tel: [phone] [facility] No Information 7 Avinash Zheng. [address] [place] [address], [facility] [place] [id number] , [place]. tel: [phone] Referring Provider: Norm Degroot, [address] [place] [address], [place], [address] . tel:[phone] [facility], [address] [place] [address], [facility], [id number] , [place] tel: [phone] [facility] irritation, scratchy, vision improved (chief complaint) Presence of intraocular lensCataract extraction status, left eyeCataract extraction status, right eye 7 Avinash Zheng. [address] [place] [address], [facility], [id number] , [place]. tel: [phone] Referring Provider: Linden Chang, [address] [place] [address], [place], [address] . tel:[phone] [facility], [address] [place] [address], [facility], [id number] , [place] tel: [phone] [facility] burning (chief complaint) Dry eye syndrome of bilateral lacrimal glandsPresence of intraocular lens 7 Bettie lAmonte. [address] [facility], [place], [id number] , [place]. tel: [phone] [facility], [address] [place] [address], [facility] [place], [id number] , [place] tel: [phone] [facility] blurry vision OS (chief complaint)f eels better today, last night was pain OS (chief complaint)v isaiason is improved OD (chief complaint) No Information 7 Raj Cheatham. [address] [place] [address], [id number] , [place]. tel: [phone] Referring Provider: Linden Chang, [address] [place] [address], [address] . tel:[phone] [facility], [address] [place] [address], [id number] , [place] tel: [phone] [facility] No Information Avinash Zheng. [address] [place] [address], [id number] , [place]. tel: [phone] Referring Provider: Linden Chang, [address] [place] [address], [address] . tel:[phone] [facility], [address] [place] [address], [id number] , [place] tel: [phone] [facility] No Information Avinash Zheng. [address] [place] [address], [id number] , [place]. tel: [phone] Referring Provider: Norm Degroot, [address] [place] [address], [address] . tel:[phone] [facility], [address] [place] [address], [id number] , [place] tel: [phone] [facility] blurry vision OD (chief complaint)d enies pain or discomfort OD (chief complaint)n ot as clear as OD OS (chief complaint) No Information 7 Avinash Zheng. [address] [place], [place], [id number] , [place]. tel: [phone] Referring Provider: Linden Chang, [address] [place] [address], [address] . tel:[phone] [facility], [address] [place] [address], [id number] , [place] tel: [phone] [facility], [facility] No Information Avinash Zheng. [address] [place] [address], [id number] , [place]. tel: [phone] Referring Provider: Norm Da Silva Mikayla, [address] [place] [address], [address] . tel:[phone] [facility], [facility], [address] [place] [address], [id number] , [place] tel: [phone] [facility] decreased vision (chief complaint) Presbyopia Avinash Zheng. [address] [place] [address], [id number] , [place]. tel: [phone] Referring Provider: Linden Chang, [address] [place] [address], [address] . tel:[phone] [facility], [facility], [address] [place] [address], [id number] , [place] tel:[phone] [facility] blurry vision (chief complaint) Age-related nuclear cataract, bilateral Avinash Zheng. [address] [place] [address], [id number] , [place]. tel: [phone] Referring Provider: Linden Chang, [address] [place] [address], [address] . tel:[phone] [facility], [address] [place] [address], [id number] , [place] tel:[phone] [facility] no problems with vision and no complaints (chief complaint) PresbyopiaOther and combined forms of senile cataractMacular puckering of retina 5 Raj Cheatham. [address] [place] [address], [place], [place], [id number] , [place]. tel: [phone] Referring Provider: Linden Chang, [address] [place] [address], [place], [address] . tel:[phone] [facility], [address] [place] [address], [place], [id number] , [place] tel: [phone] [facility] No Information 4 Avinash Zheng. [address] [place] [address], [place], [id number] , [place]. tel: [phone] Referring Provider: Linden Chang, [address] [place] [address], [place], [address] . tel:[phone] [facility], [address] [place] [address], [id number] , [place] tel: [phone] [facility] Other and combined forms of senile cataractSenile nuclear sclerosisVitreous degenerationMacul ar puckering of retinaPresbyopia 3 Raj Cheatham. [address] [place] [address], [place], [id number] , [place]. tel: [phone] Referring Provider: Linden Chang, [address] [place] [address], [address] . tel:[phone] [facility], [address] [place] [address], [place], [id number] , [place] tel: [phone] [facility] Vitreous degenerationVitre ous degeneration Aug- 3 Raj Cheatham. [address] [place] [address], [place], [id number] , [place]. tel: [phone] Referring Provider: Linden Chang, [address] [place] [address], [place], [address] . tel:[phone] [facility], [address] [place], [place], [id number] , tel: [phone] [facility] Other and combined forms of senile cataractSenile nuclear sclerosisOther and combined forms of senile cataractSenile nuclear sclerosis 3 Avinash Zheng. [address] [place] [address], [id number] , [place]. tel: [phone] Family History Family Member Type Diagnosis Age At Onset Mother Problem (finding) HBP Problem (finding) No Family hist ory of Macular Degeneration Mother Problem (finding) cataract Problem (finding) No Family history of Gl aucoma Problem (finding) No Family history of Di abetes mellitus Payers Payer name Insurance type Covered republican ID Walter pacheco(s) RR Medicare MB [id number] [facility] [id number] Social History Type Description Quantity Date Captured Comments Alcohol Use Details Unknown Caffeine Use Details Unknown Tobacco Use Status Current non-smoker 19 Smoking Status Never smoker Non-Smoking Tobacco Use Details : No Details Available : No Details Available Sex Female Chief Complaint And Reason For Visit From encounter dated '04/16/2019 10:45'. no problems with vision and no complaints (chief complaint). Description: The 78 Year old female presents for follow-up Dry Eye OU, IOL OU. Patient reports no problems with vision and no complaints in the right eye and left eye, since last exam. Vision good, stable and constant D sc & N c reading gls. The patient denies pain. OD weeps a times. Patient does a lot of crossword puzzles. OS is comfortable. Uses: Artificial tears (unknown brand) at night OU when she uses them, with relief. (doesn't use them every night.) Pt. declines Wellness/Screening photos (chief complaint). Description: Pt. declines Wellness/Screening photos in the right eye and left eye. Reason For Referral Reason For Referral No Information History Of Present Illness Encounter Date Complaint History Of Prese nt Illness no problems with vis ion and no complaints The 78 Year old female presents for follow-up Dry Eye OU, IOL OU. Patient reports no problems with vision and no complaints in the right eye and left eye, since last exam. Vision good, stable and constant D sc & N c reading gls. The patient denies pain. OD weeps a times. Patient does a lot of crossword puzzles. OS is comfortable. Uses: Artificial tears (unknown brand) at night OU when she uses them, with relief. (doesn't use them every night.) Pt. declines Wellnes s/Screening photos Pt. declines Wellness/Screening photos in the right eye and left eye. no problems with vis ion and no complaints The 77 Year old female presents for follow up of Dry Eye OU, STD IOL OU and Presbyopia OU. Pt reports no problems with vision and no complaints in the right eye and left eye since last exam 1 yr ago. Vision good, stable and constant D & N c gls. The patient denies pain or discomfort. No eye meds or OTC AT. irritation, scratchy , vision improved The 76 Year old female presents for follow up od Std IOL OU, 05/02/17 OD & 05/09/17 OS, & Dry Eye OU. Pt reports of irritation, & scratchy feeling OU, vision is improved in the right and left eye. since last exam 05/17/17 ago. It affects distance vision sc OU. Pt reports she is using old gls for NVA , she tried OTC reading gls +2.25 and did not like them. The patient denies pain OU. Pt is using Systane QID OU, & Pred Acetate BID OU. burning The 76 Year old female presents for evaluation of burning in the right eye. Had standard IOL OD 05/02/17 c [facility]. It started about 3 day(s) ago. The onset was gradual. VA not affected. It occurs constantly. The condition is not any better. The patient denies change in vision. Pt is taking Pred Acetate BID OU. vision is improved vision is imp roved OD blurry vision blurry vision OS feels better today, last night was pain feels better today, last night was pain OS denies pain or discomfort denies pain or discomfort OD blurry vision blurry vision OD not as clear as OD not as clear as OD OS decreased vision The 76 Year old female presents for F/U Cataract OU and Presbyopia OU. Pt reports decreased vision in the right and left eye, since last exam 1yr ago. It affects distance vision. Pt also reports that she notices increasing halos around street lights. NVA is good, stable and constant c gls OU. The patient denies pain or discomfort. Pt not currently using any eye meds. blurry vision The 75 Year old female presents for evaluation of Cataracts and Presbyopia. Pt reports blurry vision in the right eye and left eye since last exam 12/01/14. The onset was gradual. It affects both near and far vision. The patient denies pain or discomfort. Pt not using any eye meds OU. no problems with vis ion and no complaints The 74 Year old female presents for follow up Cataract OU and ERM OU.Pt reports no problems with vision and no complaints in the right eye and left eye since last exam 1yr ago. Pt reports Vision good, stable and constant D & N c gls. The patient denies pain or discomfort. Pt is not using any eye meds or Art Tears OU. Functional Status Date Functional Assessmen t No Information Instructions Date Instruction Additional Infor delores Impression/Plan Impression/Plan - Ey es are healthy. IOL look great. No ARMD or glaucoma. Vision is doing well. Present glasses are adequate. Updated rx if needed. Ok to use artificial tears OU PRN any dryness symptoms. Follow up - 1 year R/T/D Impression/Plan - Jonnathan th lens implants look fine. Cont. Pred Forte gtt BID OU x 6 weeks after surgery. Distance vision is great. Can use +2.25 or +2.50 OTC readers. Return in 1 year or sooner if any problems. Use OTC Art. Tears for irritation; should improve with time as the eyes heal. Follow up - 1 yaer w perico [facility] for Ref T&D Impression/Plan - Se e no signs of infection or FB OU. Think pt is experiencing dryness and should START: Art Tears QID OU and CONTINUE: Pred BID OU. F/u in [facility] as sched for PO 2/3. Follow up - as sched c [facility] for P O 2/3 Follow up - per sg Impression/Plan - Ey es look healthy, no glaucoma and no mac degen. Cataracts are progressing OU and affecting VA, can consider sg if VA is bothersome. explained cataract sg to pt using the model eye and the risks involved, bleeding, infection, loss of VA and the need for more sg. Explained the different IOL options, Standard: will need gls after sg for near; MF: will be able to see 90% of things far and near sc; CV: set one eye for near and one eye for dist, will be able to do 90% of things sc. Will do standard IOL OU, OD first. Answered all pts questions and pt states that they understand. 1 year R/T/D Related to Age-r elated nuclear cataract, bilateral Impression/Plan - Ey es are healthy. No glaucoma or ARMD. Cataract present OU and explained to pt. Will monitor until pt becomes frustrated with her vision. Small rx change, update is optional. Related to Age-related nuclear cataract, bilateral Follow up - 1 year R/T/D Related to Age-related nuclear cataract, bilateral Impression/Plan - Op tional gls Rx update, small change. Eyes are healthy. No glaucoma or ARMD. Progressing cataracts OU are normal - will continue to monitor & can remove with sg when v/a is no longer well corrected. Recommend yearly f/u, TCI if problems or changes. Follow up - 1 year w [facility] for Ref T&D. Combined Cataract OD . Condition: established, stable. NS Cataract OS. Condition: established, stable. PVD OD. Condition: established, stable. ERM OS. Condition: established, stable. Presbyopia OU. Condition: established, stable. - OD Looks good. Retina looks good: no holes, tears or RD. The floaters will become less noticeable as the brain adapts. Pt doing well. The OS has an ERM, but is doing ok with VA so will just monitor. OCT shows normal macula otherwise. There is a cataract OD>OS, will monitor for now. Glasses update optional. Can check back in 1 yr unless problems to call. Related to ERM - Return in 1 year w ith [facility] for Ref T & D. Related to ERM - ODReturn in 1 madeleine h with [facility] for #2 Dil. Related to PVD PVD OD. Condition: w ill continue to monitor. Vision: vision not affected. - Formation of floater a natural change in eyes vitreous. May baecome less noticeable with time. Instructed patient to watch for increase in flaoters light flashes or changes in vision if noted to call. will take photos of OS mac today to better monitor what may be psuedo mac hole. (N/C per [facility]) Related to PVD - Return in 1 month with [facility] for T & D OU, OCT N/C Related to PVD PVD OD. Condition: w ill continue to monitor.Vision: vision not affected. - Will dilate OU next visit, Mac OCT N/C. See plan below. Related to PVD - Return in 1 year w ith [facility] for Ref T & D. Related to NS Cataract Combined Cataract OD . Condition: established, worsening. Symptoms: will continue to monitor. NS Cataract OS. Condition: established, worsening. Symptoms: will continue to monitor. - Eyes look healthy on exam today. Mild progressing cataracts OU are normal - will continue to monitor & can remove with sg when v/a is no longer well corrected. Both macula's look healthy & normal on examination today. No glaucoma. Recommend yearly f/u, TCI if problems or changes. Related to NS Cataract Assessments Type Assessment Date assessment Dry eye syndrome of bilateral la crimal glands assessment Presbyopia assessment Hypermetropia, left eye 019 assessment Regular astigmatism, bilateral J assessment Presence of intraocular lens Apr Patient Care Teams Name Effective Dates (start - stop) Status Members No Information
--- OUTSIDE RECORDS SUMMARY | 2025-06-29 08:20 | XMS_ITS ---
Author Organization [facility] Address [address] [place], [place] [id number] Care Team Providers Care Arm Maker Name Role Phone RUY ORTA Unavailable [phone] Jose Luis Carey Unavailable Unavailable ALEX FONTANA Unavailable [phone] Allergies No Known Allergies REASON FOR VISIT *General care Social History Social History Additional Details Category Social Info Options Details Migrated Social History Migrated Social History History of tobacco use : , Smoking Status : Never used tobacco Vital Signs Height 63.00 in 06/29/2025 Weight 182 lbs 06/29/2025 BMI 32.24 kg/m2 06/29/2025 Height-cm 160.02 cm 06/29/2025 Weight-kg 82.55 kg 06/29/2025 Encounters Encounter Location Date Provider Diagnosis [facility] [address] [facility] [address] [place], [place] [id number] 06/29/2025 ALEX FONTANA Fungal infection of nail B35.1 ; Pain in right toe(s) M79.674 ; Pain in left toe(s) M79.675 ; Atherosclerosis of [place] arteries of extremities with intermittent claudication, bilateral legs I70.213 and Type 2 diabetes mellitus with other circulatory complications E11.59 Assessments Encounter Date Diagnosis (ICD Code) Assessment Notes Treatment Notes Treatment Clinical Notes Section Notes 06/29/2025 Fungal infection of nail (ICD-10 - B35.1) 06/29/2025 Pain in right toe(s) (ICD-10 - M79.674) 06/29/2025 Pain in left toe(s) (ICD-10 - M79.675) 06/29/2025 Atherosclerosis of [place] arteries of extremities with intermittent claudication, bilateral legs (ICD-10 - I70.213) 06/29/2025 Type 2 diabetes mellitus with other circulatory complications (ICD-10 - E11.59) Plan Of Treatment No Information History and Physical Notes * HPI (History [...] Date last seen by Dr. Carey was March 2025., Initials da Progress Notes * NICOLE PEARL KDOB:02/1941 (84 yo F)Acc No.[id number]:06/29/2025 Patient: Dinah NICOLE SCHMIDT Mimi Provider: Nilsa FONTANA :1940 A ge:84 Y S ex:Female Date:06/29/2025 Address:[address] [place], [place] [id number] Subjective: * Chief Complaints: * * General care * HPI: H PI: General care P maryient presents to the office for diabetic foot care. Patient states that their nails are thickened, elongated and painful. Patient states that it is aggravated by shoe gear. Onset is gradual., Patient denies taking prescription blood thinners but does take a daily aspirin., Date last seen by Dr. Carey was March 2025., Initials da. * Medical History: No Medical History Documented Medical History Verified * Surgical History: No Surgical History documented. Surgical History verified. * Hospitalization/Major Diagno stic Procedure: No Hospitalization Documented. Hospitalization Verified. * Family History: M other: PRN - Mother: :: Cancer,,known absent . S ister: SIB - Sister: . F amily History Verified.. * Social History: M igrated Social History: M igrated Social History: History of tobacco use : , Smoking Status : Never used tobacco. Social History Verified. * Medications: N one * Allergies: N .K.D.A.yesAllergies Verified. Objective: * Vitals: W t: 182 lbs, Wt-k.55 kg, Ht: 63.00 in, Ht-cm: 160.02 cm, BMI: 32.24 Index, Body Surface Area: 1.91. Assessment: * Assessment: 1. F ungal infection of nail - B35.1 (Primary) 2 . P ain in right toe(s) - M79.674 3 . P ain in left toe(s) - M79.675 4 . A therosclerosis of [place] arteries of extremities with intermittent claudication, bilateral legs - I70.213 & #160; 5 . T ype 2 diabetes mellitus with other circulatory complications - E11.59 ? Plan: * Procedure Codes: 1 1721 DEBRIDE NAIL, 6 OR MORE, Modifiers: Q8 * Preventive Medicine: Screenings: F all risk screening F all Risk Assessment: N o falls in the past year. Billing Information: * Procedure Codes: 65884 DEBRIDE NAIL, 6 OR MORE. Modifiers: Q8 * Electronic signature of CONRAD FONTANA DPM on 09/06/2025 at 03:14 PM CDT Sign off status: Pending * Provider: Nilsa FONTANA Date: 0 06/29/2025 Generated for Emmanuel ramos/Sid/Gail on: 1 03:14 PM CDT
--- OUTSIDE RECORDS SUMMARY | 2025-09-03 06:40 | XMS_ITS ---
Author Organization [facility] Address [address] [place], [place] [phone] Care Team Providers Care Museum Tour Guide Name Role Phone RUY ALEXIS Unavailable [phone] Jose Luis Carey Unavailable Unavailable REASON FOR VISIT *General care Encounters Encounter Location Date Provider Diagnosis [facility] [address] [facility] [address] [place], [place] [phone] 09/03/2025 RUY ALEXIS Plan Of Treatment No Information Progress Notes * NICOLE PEARL KDOB:02/1941 (84 yo F)Acc No.[id number]:09/03/2025 Patient: Dinah TRIPLETTNICOLE CARVAJAL Provider: Angie Alexis DPM :1940 A ge:84 Y S ex:Female Date:09/03/2025 [facility] Subjective: * Chief Complaints: * * General care Billing Information: * Procedure Codes: * Electronic signature of RUY ALEXIS DPM on 09/06/2025 at 03:14 PM CDT Sign off status: Pending * Provider: Angie Alexis DPM Date: Generated for Emmanuel ramos/Sid/eTransmitting on: 03:14 PM CDT
--- OUTSIDE RECORDS SUMMARY | 2025-09-06 15:14 | XMS_ITS | Clinical Summary ---
Author Organization [facility] Address [address] [place] [address] Care Team Providers Care Inspection Supervisor Name Role Phone Rains, Carlos Sunny Primary Care Provider Allergies Active [...] by mouth daily 90 tablet 1 4 Active Active Problems Problem Noted Date Diagnosed [...] (04/12/2021): Added automatically from request for surgery [id number] Lumbosacral radiculopathy 03/02/2021 Spondylolisthesis of lumbar region 03/02/2021 Mixed stress and urge urinary incontinence 10/24 Chronic bilateral low back pain without sciatica 06/15/2019 Calculus of gallbladder with chronic 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 obstruction 06/06/2017 Atherosclerotic heart diseas e of [place] coronary artery without angina pectoris 02/18/2017 Neuropathy [...] on file Legal 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 Gender Identity Female 02/17/2021 4:22 PM CDT [...] 2005 Osteoporosis Screening-Bone Density Scan 06/01/2013 06/01/2011 Depression Screening 12/24/2024 12/24/2023 Fall Risk Assessment 12/24/2024 12/24/2023, 04/27/20 21 Covid-19 Vaccine (2024-2 6 season) 2025 01/03/2021, 12/06/2020 Influenza Vaccine (#1) 2025 3, 10/12/2022, 08/21/2021, Additional history exists DTaP/Tdap/Td Vaccine (2 - Td or Tdap) 08/31/2029 08/31/2019 Pneumococcal vaccine 65+ Completed 11/28/2016, 11/2009 Medical Devices Implanted Type Area Contact Center Analyst Device Identifier Shelf Expiration Date Model / Serial / Lot Spinal Graft Tech [id number] Magnifuse 5x1cm Spine Cervical Posterior Graft Bone Demineralized - [id number] - [id number] Implanted:Qty: 1 on 04/25/2021 by Ar Nova MD PhD at [facility] N/A: Thoracic-L umbar Spine Med[employer] Inc 01/17/2023 [id number] / [id number] / [employer] [id number] Tissue Bone Void Filler Acupac Plus 10cc - [id number] - [id number] Implanted:Qty: 1 on 04/25/2021 by Ar Nova MD PhD at [facility] N/A: Thoracic-L umbar Spine [employer] 05/11/2025 [id number] / [employer] 7146.011 Creo Amp Polyaxial Thread Tulip Spine Transfacet Screw Bone Cocr - [id number] Implanted:Qty: 4 on 04/25/2021 by Andrea Bruno MD at [facility] N/A: Spine Lumbar [employer] 7146.0110 / / [employer] 1134.001 Creo Spinal Cap Locking Nonsterile Mis - [id number] Implanted:Qty: 4 on 04/25/2021 by Andrea Bruno MD at [facility] [employer] 1134.0010 / / [employer] 1119.1435 Creo Creo Amp 6-5mm 35mm Modular Spine Cortical Screw Bone - [id number] Implanted:Qty: 4 on 04/25/2021 by Andrea Bruno MD at [facility] N/A: Spine Lumbar [employer] 1119.1435 / / [employer] 193.122 Rise [id number] 10d Lordotic Spacer Spinal Nonsterile - [id number] Implanted:Qty: 1 on 04/25/2021 by Andrea Bruno MD at [facility] N/A: Spine Lumbar [employer] 193.122 / / [employer] 1119.7035 Creo 5.5mm 35mm Curve Ney Spinal Titanium - [id number] Implanted:Qty: 2 on 04/25/2021 by Andrea Bruno MD at [facility] N/A: Spine Lumbar [employer] 1119.7035 / / Insurance MEDICARE RAILROAD COUNT INCLUDES THE [facility] MEDICARE RAILROAD COUNT INCLUDES THE [facility] Advance Directives For more information, please contact: [phone] Documents on File Type Date Recorded Patient Central Office Repairer Expl anation ADVANCE DIRECTIVE 04/19/2021 7:41 AM ADVANCE DIRECTIVE 04/20/2020 12:00 AM DENISHA R OF STONEM[place]ON SUPERVISOR FINANCIAL/MEDICAL * Full Code (Latest Code Status on File) Date Activated Date Inactivated Comments 04/25/2021 8:13 PM 04/27/2021 2:26 PM Care Teams Inspection Supervisor Relationship Specialty Start Date End Date Carlos Manzanares DO PCP - General Family Practice 10/30/19
--- OUTSIDE RECORDS SUMMARY | 2025-09-06 15:14 | XMS_ITS | Clinical Summary ---
Author Organization [facility] [place] Address [address] [address] Phone Care Team Providers Care Housekeeping Department Worker Name Role Phone Unavailable Primary Care Provider [...] Due Date Last Done Comments Influenza Vaccine (#1) 2025 8, 08/06/2017, 08/29/2016, Additional history exists Pneumococcal Vaccine: 50+ Years Completed 11/28/2016, 11/11/2009 Pneumococcal Vaccine: Peds (0 to 5 Years) and At-Risk Patients (6 to 49 Years) Discontinued 11/28/2016, 11/11/2009 Hepatitis B Vaccine Aged Out No longe r eligible based on patient's age to complete this topic Insurance Medicare RR [facility] Medicare RR [facility]
--- OUTSIDE RECORDS SUMMARY | 2025-09-06 15:14 | XMS_ITS | Clinical Summary ---
Author Organization [facility] Address [address] [place] [address] Phone Care Team Providers Care Lawn Mower Name Role Phone Unavailable Primary Care Provider [...]
--- OUTSIDE RECORDS SUMMARY | 2025-09-06 15:14 | XMS_ITS | Clinical Summary ---
Author Organization [facility] Address [address] [place] [address] Care Team Providers Care Clin Application Specialist Name Role Phone Carlos Manzanares Charlene Primary Care Provider [phone] Source Comments [facility],non-owned Affiliates and Associated Physician Practices is amultiple site organization consisting of ambulatory clinics and hospital sitesin [place], [place], [place] and [place]. This disclosure is being madepursuant to the Care Everywhere program and may not contain all information available regarding this patient. Last updated 18.[employer] [facility] Allergies Active Allergy Reactions Criticality Noted Date [...] Comments Blood Pressure 136/74 12/23/2020 12:28 PM CONFECTIONERY LABORATORY MANAGER Pulse 97 12/23/2020 12:28 PM CONFECTIONERY LABORATORY MANAGER Temperature - - Respiratory Rate 18 12/23/2020 12:28 PM CONFECTIONERY LABORATORY MANAGER Oxygen Saturation 98% 12/23/2020 12:28 PM CONFECTIONERY LABORATORY MANAGER Inhaled Oxygen Concentration - - Weight 83.9 kg (185 lb) 09/28/2020 11:03 AM CONFECTIONERY LABORATORY MANAGER Height 160 cm (5' 3) 09/28/2020 11:03 AM CONFECTIONERY LABORATORY MANAGER Body Mass Index 32.77 09/28/2020 11:03 AM CONFECTIONERY LABORATORY MANAGER Plan of Treatment Health Maintenance Due Date Last Done Comments BONE DENSITY TESTING 1940 DTAP/TDAP/TD VACCINES (1 - Tdap) 1959 PNEUMOCOCCAL VACCINE 50+ (1 of 1 - PCV) 1990 ZOSTER VACCINE (1 of 2) 1990 Respiratory Syncytial Virus (RSV) Vaccine Pt: or over 60 yrs (1 - 1-dose 75+ series) 2015 DEPRESSION SCREENING 11/11/2024 COVID-19 VACCINE (2 - 2024- season) 2025 12/06/2020 INFLUENZA VACCINE (#1) 2025 0, 08/18/2019, 08/21/2018, Additional history exists HEPATITIS B [...] SUPPLEMENT PAYOR GENERIC MEDICARE ANTHEM Care Teams Clin Application Specialist Relationship Specialty Start Date End Date Carlos Manzanares DO PCP - General Family Medicine 09/06/20
--- OUTSIDE RECORDS SUMMARY | 2025-09-06 15:14 | XMS_ITS | Patient Health Record ---
Author Organization [facility] Address [address] [place], [place] [id number] Care Team Providers Care Crm Dynamics Developer Name Role Phone RUY ORTA Unavailable [phone] Jose Luis Carey Unavailable Unavailable ALEX FONTANA Unavailable [phone] Allergies No Known Allergies Reason For Referral No Information Immunizations Vaccine Route Administration Date Status Comme nts Influenza (split), 3 yrs and above Unknown 08/07/2013 A dministered Influenza (split), 3 yrs and above Unknown 08/07/2013 A dministered Influenza (split), 3 yrs and above Unknown 09/11/2013 A dministered Influenza (split), 3 yrs and above Unknown 09/11/2013 A dministered Influenza (split), 3 yrs and above Unknown 09/11/2013 A dministered Influenza (split), 3 yrs and above Unknown 08/25/2014 A dministered Influenza (split), 3 yrs and above Unknown 08/25/2014 A dministered Influenza (split), 3 yrs and above Unknown 08/25/2014 A dministered Influenza, high dose seasonal Unknown 08/13/2014 Admini stered Influenza, high dose seasonal Unknown 08/13/2014 Admini stered Influenza, high dose seasonal Unknown 08/11/2016 Admini stered Influenza, high dose seasonal Unknown 08/11/2016 Admini stered Influenza, high-dose seasona l, quadrivalent, preservative free >65 yrs Unknown 08/13/2014 Administered Influenza, high-dose seasona l, quadrivalent, preservative free >65 yrs Unknown 08/11/2016 Administered Influenza, quadrivalent, spl it, preservative free, 3 years or older Unknown 08/04/2015 Administered Influenza, quadrivalent, spl it, preservative free, 3 years or older Unknown 08/04/2015 Administered Influenza, quadrivalent, spl it, preservative free, 3 years or older Unknown 08/04/2015 Administered Influenza, quadrivalent, spl it, preservative free, 3 years or older Unknown 08/29/2016 Administered Influenza, quadrivalent, spl it, preservative free, 3 years or older Unknown 08/29/2016 Administered Influenza, quadrivalent, spl it, preservative free, 3 years or older Unknown 08/29/2016 Administered Influenza, quadrivalent, spl it, preservative free, 3 years or older Unknown 08/06/2017 Administered Influenza, quadrivalent, spl it, preservative free, 3 years or older Unknown 08/06/2017 Administered Influenza, quadrivalent, spl it, preservative free, 3 years or older Unknown 08/21/2018 Administered Influenza, quadrivalent, spl it, preservative free, 3 years or older Unknown 08/21/2018 Administered Influenza, seasonal, injecta ble, preservative free, 6-35 months Unknown 09/08/2013 Administered Influenza, seasonal, injecta ble, preservative free, 6-35 months Unknown 09/08/2013 Administered Influenza, unspecified formulation Unknown 08/07/2013 A dministered Influenza, unspecified formulation Unknown 08/07/2013 A dministered Influenza, unspecified formulation Unknown 09/08/2013 A dministered Influenza, unspecified formulation Unknown 09/11/2013 A dministered Influenza, unspecified formulation Unknown 09/11/2013 A dministered Influenza, unspecified formulation Unknown 08/13/2014 A dministered Influenza, unspecified formulation Unknown 08/25/2014 A dministered Influenza, unspecified formulation Unknown 08/25/2014 A dministered Influenza, unspecified formulation Unknown 08/04/2015 A dministered Influenza, unspecified formulation Unknown 08/04/2015 A dministered Influenza, unspecified formulation Unknown 08/11/2016 A dministered Influenza, unspecified formulation Unknown 08/29/2016 A dministered Influenza, unspecified formulation Unknown 08/29/2016 A dministered Influenza, unspecified formulation Unknown 08/06/2017 A dministered Influenza, unspecified formulation Unknown 08/06/2017 A dministered Influenza, unspecified formulation Unknown 08/21/2018 A dministered Influenza, unspecified formulation Unknown 08/21/2018 A dministered Influenza, unspecified formulation Unknown 08/18/2019 A dministered Moderna Covid-19 Vaccine 1st dose Unknown 12/06/2020 Ad ministered Moderna Covid-19 Vaccine 1st dose Unknown 12/06/2020 Ad ministered Moderna Covid-19 Vaccine 1st dose Unknown 01/03/2021 Ad ministered Moderna Covid-19 Vaccine 1st dose Unknown 01/03/2021 Ad ministered Novel [id number] Unknown 08/07/2013 Administered Novel [id number] Unknown 09/11/2013 Administered Novel [id number] Unknown 08/25/2014 Administered Pneumococcal conjugate PCV 13 Unknown 11/28/2016 Admini stered Pneumococcal conjugate PCV 13 Unknown 11/28/2016 Admini stered Pneumococcal conjugate PCV 13 Unknown 11/28/2016 Admini stered Pneumococcal conjugate PCV 13 Unknown 11/28/2016 Admini stered Pneumococcal polysaccharide PPV23 Unknown 11/11/2009 Ad ministered Pneumococcal polysaccharide PPV23 Unknown 11/11/2009 Ad ministered Pneumococcal polysaccharide PPV23 Unknown 11/11/2009 Ad ministered Tdap Unknown 08/31/2019 Administered Tdap Unknown 08/31/2019 Administered Social History Social History Additional Details Category Social Info Options Details Migrated Social History Migrated Social History History of tobacco use : , Smoking Status : Never used tobacco Vital Signs Height-cm 160.02 cm 06/29/2025 Weight-kg 82.55 kg 06/29/2025 Height 63.00 in 06/29/2025 Weight 182 lbs 06/29/2025 BMI 32.24 kg/m2 06/29/2025 Encounters Encounter Location Date Provider Diagnosis [facility] [address] [facility] [address] [place], [place] [id number] 06/29/2025 ALEX FONTANA Fungal infection of nail B35.1 ; Pain in right toe(s) M79.674 ; Pain in left toe(s) M79.675 ; Atherosclerosis of [place] arteries of extremities with intermittent claudication, bilateral legs I70.213 and Type 2 diabetes mellitus with other circulatory complications E11.[address] [facility] [address] [place], [place] [id number] 09/28/2024 RUY [place] Fungal infection of nail B35.1 ; Pain in right toe(s) M79.674 ; Pain in left toe(s) M79.675 and Unspecified atherosclerosis of [place] arteries of extremities, bilateral legs I70.203 [facility] [place] [address] [id number] 12/01/2024 RUY [place] Fungal infection of nail B35.1 ; Pain in right toe(s) M79.674 ; Pain in left toe(s) M79.675 and Unspecified atherosclerosis of [place] arteries of extremities, bilateral legs I70.203 [facility] [address] [id number] 02/16/2025 RUY [place] Fungal infection of nail B35.1 ; Pain in right toe(s) M79.674 ; Pain in left toe(s) M79.675 and Unspecified atherosclerosis of [place] arteries of extremities, bilateral legs I70.203 [facility] [place] [address] [id number] 05/04/2025 RUY [place] Fungal infection of nail B35.1 ; Pain in right toe(s) M79.674 ; Pain in left toe(s) M79.675 and Unspecified atherosclerosis of [place] arteries of extremities, bilateral legs I70.203 Assessments Encounter Date Diagnosis (ICD Code) Assessment Notes Treatment Notes Treatment Clinical Notes Section Notes 09/28/2024 Fungal infection of nail (ICD-10 - B35.1) 12/01/2024 Fungal infection of nail (ICD-10 - B35.1) 02/16/2025 Fungal infection of nail (ICD-10 - B35.1) 05/04/2025 Fungal infection of nail (ICD-10 - B35.1) 06/29/2025 Pain in right toe(s) (ICD-10 - M79.674) 06/29/2025 Fungal infection of nail (ICD-10 - B35.1) 06/29/2025 Pain in left toe(s) (ICD-10 - M79.675) 05/04/2025 Pain in right toe(s) (ICD-10 - M79.674) 02/16/2025 Pain in right toe(s) (ICD-10 - M79.674) 12/01/2024 Pain in right toe(s) (ICD-10 - M79.674) 09/28/2024 Pain in right toe(s) (ICD-10 - M79.674) 09/28/2024 Pain in left toe(s) (ICD-10 - M79.675) 12/01/2024 Pain in left toe(s) (ICD-10 - M79.675) 02/16/2025 Pain in left toe(s) (ICD-10 - M79.675) 05/04/2025 Pain in left toe(s) (ICD-10 - M79.675) 06/29/2025 Atherosclerosis of [place] arteries of extremities with intermittent claudication, bilateral legs (ICD-10 - I70.213) 06/29/2025 Type 2 diabetes mellitus with other circulatory complications (ICD-10 - E11.59) 05/04/2025 Unspecified atherosclerosis of [place] arteries of extremities, bilateral legs (ICD-10 - I70.203) 02/16/2025 Unspecified atherosclerosis of [place] arteries of extremities, bilateral legs (ICD-10 - I70.203) 12/01/2024 Unspecified atherosclerosis of [place] arteries of extremities, bilateral legs (ICD-10 - I70.203) 09/28/2024 Unspecified atherosclerosis of [place] arteries of extremities, bilateral legs (ICD-10 - I70.203) 09/28/2024 Other Nails 1-5 Bilateral were debrided extensively with nail nippers and emery board, reducing length and girth to pink healthy tissue with any subungual debris and necrotic tissue removed 12/01/2024 Other Nails 1-5 Bilateral were debrided extensively with nail nippers and emery board, reducing length and girth to pink healthy tissue with any subungual debris and necrotic tissue removed 02/16/2025 Other Nails 1-5 Bilateral were debrided extensively with nail nippers and emery board, reducing length and girth to pink healthy tissue with any subungual debris and necrotic tissue removed 05/04/2025 Other Nails 1-5 Bilateral were debrided extensively with nail nippers and emery board, reducing length and girth to pink healthy tissue with any subungual debris and necrotic tissue removed Plan Of Treatment No Information Insurance Providers Payer Name Payer Address Payer Phone Subscriber Number Group Number Insured Name Patient Relationship to Insured Coverage Start Date Coverage End Date Medicare Piotr Burgos GBA [id number] [address] [address] [place], [place] [phone] [id number] NICOLE LAWSON Self - patient is the insured [facility]) ATTN CLAIMS [address] [place] [address] [id number] NICOLE LAWSON Self - patient is the insured
--- OUTSIDE RECORDS SUMMARY | 2025-09-06 15:14 | XMS_ITS | Encounter Summary ---
Author Organization [facility] Address [address] [place] [address] Care Team Providers Care Fiber Technologist Name Role Phone Carlos Manzanares DO Primary Care Provider Carlos Manzanares DO Unavailable [phone] Tanika Scanlon MD Primary Care Provider [phone] Enrike Cutler MD Unavailable [phone] Mary Carey MD Primary Care Provider [phone] Encounter Details Date Type Department Care Team (Late st Contact Info) Description 04/26/2021 Therapy Plan [facility] Outpatient Therapy [place], [place] [id number] Rebekah Cavazos, PT [place], [place] [id number] Social History Tobacco Use Types Packs/Day Years Used Date Smoking Tobacco: Never Smokeless Tobacco: Never Alcohol Use Standard Drinks/Week Comments Not Currently 0 (1 standard drink = 0.6 oz pur e alcohol) PHQ-2 Answer Date Recorded PHQ-2 Score - If the patient scores above 3, please move on to questions 3-9 0 06/20/2020 Comments No Sex and Gender Information Value Date Recorded Sex Assigned at Female 12/04/2024 1:27 PM FOUNDER / CEO Legal Sex Female 9:05 AM CDT Gender Identity Female 12/25/2021 4:40 AM FOUNDER / CEO Sexual Orientation Straight 12/25/2021 4: 40 AM FOUNDER / CEO documented as of this encounter Functional Status * RETIRED Are you deaf or do you have serious difficulty hearing Answer Date of Assessment Author Status No 02/27/2021 12:38 AM CDT Acti ve * RETIRED Are you blind or do you have serious difficulty seeing, even when wearing glasses? Answer Date of Assessment Author Status No 02/27/2021 12:38 AM CDT Acti ve * Do you have serious difficulty walking or climbing stairs? Answer Date of Assessment Author Status No 02/27/2021 12:38 AM CDT Shaun Rashid R N Active * Do you have difficulty dressing or bathing? Answer Date of Assessment Author Status No 02/27/2021 12:38 AM CDT Shaun Rashid R N Active * Because of a physical, mental, or emotional condition, do you have difficulty doing errands alone such as visiting a doctor's office or shopping? Answer Date of Assessment Author Status No 02/27/2021 12:38 AM CDT Shaun Rashid R N Active documented as of this encounter Mental Status * Because of a physical, mental, or emotional condition, do you have serious difficulty concentrating, remembering, or making decisions? Answer Entry Date Author Status No 02/27/2021 12:38 AM CDT Shaun Rashid R N Active documented in this encounter Plan of Treatment Upcoming Encounters Date Type Department Care Team (Late st Contact Info) Description 12/06/2025 2:20 PM FOUNDER / CEO Office Visit [facility] [address] [facility], [address] [place] [address] Jaya Thompson MD [address] [place] [address] 01/11/2026 1:00 PM FOUNDER / CEO Office Visit [facility], [address] [place] [address] Heather Salomon, OVERSEAMER-C [facility]. [address] [place], [place] [address] documented as of this encounter Goals Goal Patient Goal Type Associated Problems Recent Progress Patient-Stated? Author Health - patient able to perform ADLs independently General No Fern, Yumiko Le, RN documented as of this encounter Visit Diagnoses Not on filedocumented in this encounter Additional Health Concerns Infection Onset Date Last Indicated Resolved Time COVID-19 Rule Out 12/26/2021 12/26/2021 12/27/2021 12:27 PM FOUNDER / CEO documented as of this encounter Care Teams Fiber Technologist Relationship Specialty Start Date End Date Carlos Manzanares DO PCP - General FAMILY PRACTICE 08/04/20 06/07/24 Tanika Scanlon MD [address] [place] [address] PCP - General FAMILY PRACTICE 06/08/24 08/05/24 Mary Carey MD [address] [address] PCP - General FAMILY PRACTICE 08/06/24 Carlos Manzanares DO FAMILY PRACTICE 08/04/20 Enrike Cutler MD [facility]. [address] [place], [place] [address] Consulting Physician CARDIOVASCULAR DISEASE 06/08/24 documented as of this encounter
--- OUTSIDE RECORDS SUMMARY | 2025-09-06 15:14 | XMS_ITS | Encounter Summary ---
Author Organization [facility] Address [address] [place] [address] Phone Care Team Providers Care Asphalt Tamper Name Role Phone Jose Mace MD, Carlos Primary Care Provider [phone] Encounter Details Date Type Department Care Team (Late st Contact Info) Description 09/11/2019 Orders Only [facility] [place] [address] [place] [address] Jacob Lambert MD [address] [place] [address] Chronic kidney disease, Stage III (moderate) [...] hyperlipidemia documented in this encounter Care Teams Asphalt Tamper Relationship Specialty Start Date End Date Carlos Garcia Jr., MD [address] [place] [address] [address] [place] [address] PCP - General 09/11/18 12/21/23 documented as of this encounter
--- OUTSIDE RECORDS SUMMARY | 2025-09-06 15:14 | XMS_ITS | Clinical Summary ---
Author Organization [facility] Address [address] [place] [address] Phone Care Team Providers Care Bricklayer Paving Brick Name Role Phone Zechariah Cohen MD Unavailable [phone] Kishan Underwood MD Unavailable Davide Borjas MD Unavailable Un available Jacob Lambert MD Unavailable Carlos Manzanares DO Primary Care Provider Kaushal Scott MD Unavailable [phone] Allergies Active Allergy Reactions Criticality Noted Date Comments Morphine Other (see Comments),Nausea Low 07/21/20 20 Statins Other (see Comments) 10/29/2014 Elevated LFT's Medications Aspirin 81 MG Tablet Take 81 mg by mouth daily. Active butalbital-roe taminophen-caf feine (FIORICET, ESGIC) 50-325-40 MG Tablet Take by [...] losartan (COZAAR) 25 MG Tablet 5 Active acetaminophen- codeine (TYLENOL #3) 300-30 MG Tablet Take 1 Tablet by mouth 2 times daily. 4 Active acetaminophen- codeine (TYLENOL #3) 300-30 MG Tablet Indications: Chronic Pain TAKE 1 TABLET THREE TIMES DAILY NEEDED FOR CHRONIC PAIN 0 025 Discontin ued(Med List Clean Up) meclizine (ANTIVERT) 25 MG Tablet 5 025 Discontin ued(Med List Clean Up) Active Problems Problem Noted Date Diagnosed Date [...] Encounters Date Type Department Care Team Description 08/16/2025 10:45 AM CDT Lab [facility] [address] [phone] Lab, [facility]ogamm[facility]ob[facility] 08/16/2025 10:15 AM CDT Office Visit [facility] [address] [phone] Jossy Mendoza, CEMETERY WARDEN, LOG DRIVER Hypogammaglobulinemia (Primary Dx) 08/16/2025 Travel from Last 3 Months Immunizations Immunization [...] Sign Reading Time Taken Comments Blood Pressure 108/72 08/16/2025 10:23 AM CDT Pulse 105 08/16/2025 10:23 AM CDT Temperature 36.3 C (97.4 F) 08/16/2025 10:23 AM CDT Respiratory Rate 18 08/16/2025 10:23 AM CDT Oxygen Saturation 96% 08/16/2025 10:23 AM CDT Inhaled Oxygen Concentration - - Weight 88 kg (194 lb 1.6 oz) 08/16/2025 10:23 AM CDT Height 160 cm (5' 3) 08/16/2025 10:23 AM CDT Body Mass Index 34.38 08/16/2025 10:23 AM CDT Plan of Treatment Upcoming Encounters Date Type Department Care Team (Late st Contact Info) Description 08/15/2026 10:00 AM CDT Office Visit [facility] [address] [phone] Kaushal Scott MD [facility] [place] [address] [address] Health Maintenance Due Date Last Done Comments Zoster Immunization (1 of 2) 1990 Medicare Initial AWV G0438 11/11/2006 DEXA Bone Density 06/01/2013 06/01/2011, 06/01/2011 Respiratory Syncytial Virus (RSV) Immunization (Adult) (1 - 1-dose 75+ series) 2015 Influenza Immunization (#1) 2025 12/03/2024, 10/29/2023, 10/12/2022, Additional history exists SARS-COV-2 Immunization ( season) 2025 09/15/2021, 01/03/2021, 12/06/2020 Hepatitis C Virus (HCV) Screening Completed 01/03/2016 Pneumococcal Immunization (50+ years) Completed 11/28/2016, 11/28/2016, 11/11/2009, Additional history exists Pneumococcal Immunization Combined Discontinued 11/28/2016, 11/28/2016, 11/11/2009, Additional history exists DTaP/Tdap/Td Immunization Discontinued 08/31/2019, TdaP Immunization Completed 08/31/2019 Hepatitis B Immunization Aged Out No longer [...] Comments CBC WITH AUTO DIFF OH Routine 08/16/2025 10:50 AM CDT IMMUNOGLOBULIN IGA, IGG & IGM QUANT Routine 08/16/2025 10:50 AM CDT Hypogammaglobuline deisy HEPATITIS PANEL ACUTE (AHP) Routine 01/03/2016 9:26 AM GARAGE DOOR OPENER INSTALLER Transaminitis GRIS BONE DENSITOMETRY AXIAL SKELETON Routine 06/01/2011 from Last 3 Months or Most Recently Relevant to Health Maintenance Results * (ABNORMAL) CBC WITH AUTO DIFF OH (08/16/2025 10:50 AM CDT) WBC 9.7 4.0 - 10.0 10*3/uL CANCER EPIC MANAGER [facility] HGB 14.0 11.2 - 15.7 g/dL CANCER EPIC MANAGER [facility] HCT 43.5 34.1 - 44.9 % CANCER EPIC MANAGER [facility] PLT 229 163 - 369 10*3/uL [facility] MPV 9.7 9.4 - 12.4 fL CANCER EPIC MANAGER [facility] RBC 4.55 3.93 - 5.22 10*6/uL [facility] MCV 96(H) 79 - 95 fL CANCER EPIC MANAGER [facility] MCH 30.8 25.6 - 32.2 pg CANCER EPIC MANAGER [facility] MCHC 32.2 32.2 - 36.5 g/dL CANCER EPIC MANAGER [facility] RDW 13.1 11.6 - 14.4 % CANCER EPIC MANAGER [facility] Neutrophils % 74.8(H) 36.0 - 66.0 % CANCER EPIC MANAGER [facility] Lymphocytes % 15.2(L) 19.0 - 40.0 % CANCER EPIC MANAGER [facility] Monocytes % 6.6 4.1 - 12.1 % CANCER EPIC MANAGER [facility] Eosinophils % 2.6 0.0 - 3.5 % CANCER EPIC MANAGER [facility] Basophils % 0.4 0.0 - 1.0 % CANCER EPIC MANAGER [facility] Absolute Neutrophils 7.2(H) 1.4 - 6.6 10*3/uL [facility] Absolute Lymphocytes 1.5 0.8 - 4.0 10*3/uL CANCER EPIC MANAGER [facility] Absolute Monocytes 0.6 0.2 - 1.2 10*3/uL CANCER EPIC MANAGER [facility] Absolute Eosinophils 0.3 0.0 - 0.4 10*3/uL CANCER EPIC MANAGER [facility] Absolute Basophils 0.0 0.0 - 0.1 10*3/uL CANCER EPIC MANAGER [facility] 08/16/2025 10:5 0 AM CDT Jossy Mendoza APRN, LOG DRIVER LAB SEND OUTS Final Result [facility] [address] [address], [place] [phone] * IMMUNOGLOBULIN IGA, IGG & IGM QUANT (08/16/2025 10:50 AM CDT) IGG 713 635 - 1,741 mg/dL [facility] IGA 258 66 - 433 mg/dL [facility] IGM 46 45 - 281 mg/dL [facility] Blood 08/16/2025 10:5 0 AM CDT Narrative [facility] - 08/17/2025 3:48 PM CDT Release to patient->Immediate Jossy Mendoza APRN, LOG DRIVER CHEMISTRY ORDERABLES Final Result Performing Organization Address City/[facility]/ZIP Co de Phone Number [facility] [address] [address], [place] [phone] * HEPATITIS PANEL ACUTE (AHP) (01/03/2016 9:26 AM GARAGE DOOR OPENER INSTALLER) HEPATITIS A IGM ANTIBODY NON DETECTED NON DETECTED 01/03/2016 5:20 PM GARAGE DOOR OPENER INSTALLER [facility] Comment: IGM Antibodies to HAV not detected. Does not exclude early acute or recovered HAV infection. HEP B CORE AB (IGM) NON DETECTED NON DETECTED 01/03/2016 5:20 PM GARAGE DOOR OPENER INSTALLER [facility] Comment: IGM anti-HBC not detected. Does not exclude the possibility of exposure to or infection with HBV. HEPATITIS B SURFACE ANTIGEN NON DETECTED NON DETECTED 01/03/2016 5:20 PM GARAGE DOOR OPENER INSTALLER [facility] hepatitis C antibody 0.06 <1 S/CO 01/03/2016 5:20 PM GARAGE DOOR OPENER INSTALLER [facility] Comment: Signal/Cutoff ratio < 0.79 is Nondetected Signal/Cutoff ratio 0.80-0.99 is Grayzone Signal/Cutoff ratio > 0.99 is Detected Supplemental assays are recommended if signal/cutoff ratio is >/=1.00. Signal/cutoff ratio result >/= 5.00 is 97% predictive of positivity for recombinant immunoblot assay (RIBA) and will be reported to the [place] Department of Public Health as required. Blood specimen (specimen) Venipuncture / Unknown 01/03/2016 9:26 AM GARAGE DOOR OPENER INSTALLER 01/03/2016 9:26 AM GARAGE DOOR OPENER INSTALLER Isaias Raya MD HEMATOLOGY ORDERABLES Carol l Result [facility] [address] [place] [address] * [facility] BONE DENSITOMETRY AXIAL SKELETON (06/01/2011) Anatomical Region Laterality Modality BODY N/A Other Historical Provider IMG DEXA ORDERABLES Final Result from Last 3 Months or Most Recently Relevant to Health Maintenance Insurance MEDICARE Earlier Media [facility] MEDICARE RAILROAD [facility] XXXMEDICARE LIEN Advance Directives * Full Code (Latest Code Status on File) Date Activated Date Inactivated Comments 06/22/2018 2:23 PM 06/23/2018 12:44 PM CPR-Full Tr eatment: FULL ARREST: Attempt Resuscitation/CPR wit intubation and mechanical ventilation. PRE-ARREST: Use entire range of life support measures to stabilize the patient. Care Teams Bricklayer Paving Brick Relationship Specialty Start Date End Date Carlos Manzanares DO [address] [place], [place] [address] PCP - General Family Medicine 07/04/23 Zechariah Cohen MD Consulting Physician Physical Medicine & Rehabilitation 06/11/16 Kishan Underwood MD Consulting Physician Urology 10/08/16 Davide Borjas MD Consulting Physician General Surgery 05/29/17 Jacob Lambert MD [address] [place] [address] Enterprise Account Executive Nephrology 05/30/18 Kaushal Scott MD [address] [place] [phone] Consulting Physician Oncology 08/16/25
--- OUTSIDE RECORDS SUMMARY | 2025-09-06 15:14 | XMS_ITS | Encounter Summary ---
Author Organization [facility] [place] [address] Care Team Providers Care Nurse Staff Industrial Name Role Phone Carlos Manzanares DO Primary Care Provider [phone] Carlos Manzanares DO Unavailable [phone] Tanika Scanlon MD Primary Care Provider [phone] Enrike Cutler MD Unavailable [phone] Mary Carey MD Primary Care Provider [phone] Encounter Details Date Type Department Care Team (Late st Contact Info) Description 04/16/2024 XM Radio Message Enc [facility] [address] [place], [facility] Provider Cholesterol reviewed Social History Tobacco Use Types Packs/Day Years Used Date Smoking Tobacco: Never Smokeless Tobacco: Never Alcohol Use Standard Drinks/Week Comments Not Currently 0 (1 standard drink = 0.6 oz pur e alcohol) Humiliation, Afraid, Rape, and Kick questionnair e Answer Date Recorded Within the last year, have y ou been afraid of your partner or ex-partner? No 04/23/2023 Within the last year, have y ou been humiliated or emotionally abused in other ways by your partner or ex-partner? No Within the last year, have y ou been kicked, hit, slapped, or otherwise physically hurt by your partner or ex-partner? No 04/23/2023 Within the last year, have y ou been raped or forced to have any kind of sexual activity by your partner or ex-partner? No 04/23/2023 Overall Financial Resource Strain (CARDIA) Answe r Date Recorded How hard is it for you to pa y for the very basics like food, housing, medical care, and heating? Not hard at all 04/23/2023 PHQ-2 Answer Date Recorded Patient Health Questionnaire-2 Score 0 01/06/2024 Hunger Vital Sign Answer Date Recorded Within the past 12 months, y ou worried that your food would run out before you got the money to buy more. Never true 04/23/20 23 Within the past 12 months, t he food you bought just didn't last and you didn't have money to get more. Never true 04/23/2023 PRAPARE - Transportation Answer Date Re corded In the past 12 months, has l ack of transportation kept you from medical appointments or from getting medications? No 04/11 In the past 12 months, has l ack of transportation kept you from meetings, work, or from getting things needed for daily living? No 04/23/2023 Housing Stability Vital Sign Answer Sundeep e Recorded In the last 12 months, was t here a time when you were not able to pay the mortgage or rent on time? No 04/23/2023 In the last 12 months, how many places have you lived? 1 04/23/2023 In the last 12 months, was t here a time when you did not have a steady place to sleep or slept in a detention (including now)? No 04/23/2023 Comments No Sex and Gender Information Value Date Recorded Sex Assigned at Female 12/04/2024 1:27 PM CUSTODIAN Legal Sex Female 9:05 AM CDT Gender Identity Female 12/25/2021 4:40 AM CUSTODIAN Sexual Orientation Straight 12/25/2021 4: 40 AM CUSTODIAN documented as of this encounter Functional Status * Are you deaf or do you have serious difficulty hearing Answer Date of Assessment Author Status No 04/23/2023 12:09 AM CDT Adriana Jones, Sujata N Active * Are you blind or do you have serious difficulty seeing, even when wearing glasses? Answer Date of Assessment Author Status No 04/23/2023 12:09 AM CDT Adriana Jones R N Active * Do you have serious difficulty walking or climbing stairs? Answer Date of Assessment Author Status No 04/23/2023 12:09 AM CDT Adriana Jones R N Active * Do you have difficulty dressing or bathing? Answer Date of Assessment Author Status No 04/23/2023 12:09 AM CDT Adriana Jones R N Active * Because of a physical, mental, or emotional condition, do you have difficulty doing errands alone such as visiting a doctor's office or shopping? Answer Date of Assessment Author Status No 04/23/2023 12:09 AM CDT Adriana Jones R N Active documented as of this encounter Mental Status * Because of a physical, mental, or emotional condition, do you have serious difficulty concentrating, remembering, or making decisions? Answer Entry Date Author Status No 04/23/2023 12:09 AM CDT Adriana Jones R N Active documented in this encounter Plan of Treatment Upcoming Encounters Date Type Department Care Team (Late st Contact Info) Description 12/06/2025 2:20 PM CUSTODIAN Office Visit [facility] [address] [facility], [address] [place] [phone] Jaya Thompson MD [address] [place] [address] 01/11/2026 1:00 PM CUSTODIAN Office Visit [facility] [facility], [address] [place] [address] Heather Salomon, AUTOMOTIVE ENGINEER-C [facility]. [address] [place] [address] documented as of this encounter Goals Goal Patient Goal Type Associated Problems Recent Progress Patient-Stated? Author Health - patient able to perform ADLs independently General No Myrtle Shirley, RN Patient will return to prior living situation and remain independent in ADLs upon discharge from hospital Lifestyle No Paula Browning RN documented as of this encounter Visit Diagnoses Not on filedocumented in this encounter Additional Health Concerns Assessment Noted Time PHQ-9 Depression Total Score: 0 12/22/19 22 4:12 PM CUSTODIAN documented as of this encounter Care Teams Nurse Staff Industrial Relationship Specialty Start Date End Date Carlos Manzanares DO PCP - General FAMILY PRACTICE 08/04/20 06/07/24 Tanika Scanlon MD [address] [place] [address] PCP - [facility] 06/08/24 08/05/24 Mary Carey MD [address] [place] [id number] PCP - General [facility] PR[facility] 08/06/24 Carlos Manzanares DO FAMILY PRACTICE 08/04/20 Enrike Cutler MD [address] [address] Consulting Physician CARDIOVASCULAR DISEASE 06/08/24 documented as of this encounter
--- OUTSIDE RECORDS SUMMARY | 2025-09-06 15:14 | XMS_ITS | Clinical Summary ---
Author Organization [facility] Address [facility] [place] [address] Care Team Providers Care Pain Management Physician Name Role Phone Carlos Manzanares Charlene DO Unavailable [phone] Enrike Cutler MD Unavailable [phone] Mary Carey MD Primary Care Provider [phone] Allergies Active Allergy Reactions Criticality Noted Date Comments Atorvastatin Other (see comment) 06/15/2019 Elevates liver enzymes Morphine Nausea and Vomiting,Nausea Only Low 07/21/2020 Statins Other (see comment) 10/29/2014 Elevated LFT's Elevates liver enzymes Medications aspirin 81 MG chewable tabletIndicati ons:heart health Chew 1 tablet (81 mg total) by mouth daily. 100 tablet 1 01/08/20 23 Active fish oil (OMEGA-3 FATTY ACID) 1000 MG Cap capsuleIndicat ions:heart health Take 2 capsules (2,000 mg total) by mouth 2 (two) times daily. 04/29/20 24 Active TRESIBA FLEXTOUCH 100 UNIT/ML Solution Pen-injector injection 06/05/20 24 Active gabapentin (NEURONTIN) 300 MG capsuleIndicat ions:Neuropath ic pain Take 2 tab po QAM and PM, and 1 tab Q noon 150 capsule 5 06/25/20 24 Active metFORMIN (GLUCOPHAGE) 500 MG tabletIndicati ons:diabetes Take 1 tablet (500 mg total) by mouth 2 (two) times daily with meals. Indications: diabetes 180 tablet 1 06/25/20 24 Active acetaminophen- codeine (TYLENOL #3) 300-30 MG tablet Take 1 tablet by mouth 2 (two) times daily as needed for Pain. 08/10/20 24 Active DULoxetine (CYMBALTA) 60 MG capsule Take 1 capsule (60 mg total) by mouth daily. 06/02/20 24 Active losartan (COZAAR) 25 MG tablet Take 1 tablet (25 mg total) by mouth. 01/23/20 25 Active ezetimibe (ZETIA) 10 MG tablet TAKE 1 TABLET(10 MG) BY MOUTH DAILY FOR CHOLESTEROL 90 tablet 1 08/16/20 25 Active ezetimibe (ZETIA) 10 MG tablet TAKE 1 TABLET(10 MG) BY MOUTH DAILY FOR CHOLESTEROL 90 tablet 1 02/09/20 25 025 Discontinued Active Problems Problem Noted Date Diagnosed Date UTI (urinary tract infection) 05/29/2024 Renal cyst 01/06/2024 Dizziness 04/22/2023 Lesion of pancreas 01/02/2023 Elevated LFTs 07/10/2022 Family history of coronary artery disease 2021 Mixed stress and urge urinary incontinence 10/24 Essential hypertension 06/15/2019 Stage 3 chronic kidney disease 06/15/2019 Benign hypertension with chronic kidney disease, stage III 06/15/2019 Chronic bilateral low back pain without sciatica 06/15/2019 Slow transit constipation 06/22/2018 Hypotension 06/22/2018 Bacteria in urine 06/22/2018 Neuropathic pain 05/05/2017 Atherosclerotic heart diseas e of [place] coronary artery without angina pectoris 02/18/2017 Peripheral vascular disease 12/24/2016 Neuropathy 09/27/2016 Overview (05/01/2024): Following with Neurology Continue gabapentin and Cymbalta p.r.n. use of pain medication Calculus of kidney 01/31/2016 Overview (02/26/2021): 02/07/16 Left ESWL, FU in 4 wks with KUB 01/31/16 Left Kidney stone, Schedule left ESWL Overview: 02/07/16 Left ESWL, FU in 4 wks with KUB 01/31/16 Left Kidney stone, Schedule left ESWL Migraine 02/04/2014 Resolved Problems Problem Noted Date Diagnosed Date Resolved Date Health maintenance examination 06/20/2020 07/22/2020 Calculus of gallbladder with chronic 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 obstruction 06/06/20172023 Other hyperlipidemia 02/11/2017 025 Overview (12/28/2019): Overview: Converted unresolved ICD9, potential mismatch. Encounters Date Type Department Care Team Description 07/07/2025 11:30 AM CDT Office Visit [facility], [address] [place] [address] Enrike Cutlre MD Lipids (6 mo follow up); Shortness Of Breath 07/07/2025 Travel 06/07/2025 9:40 AM CDT Office Visit [facility] Multispecialty Care - [address], [address] [place] [address] Jaya Thompson MD Follow Up 06/07/2025 Travel from Last 3 Months Immunizations Immunization Administration Dates Next Due Flublok (Quadrivalent) 10/29/2023,2021,08/21/2021,2019,08/18/2019 Fluzone High Dose - >Age 65 (Prefilled Syringe) 08/11/2016,08/13/2014 H1N1 Injectable 2009 Influenza 08/25/2014,2012,08/07/2013 Influenza (Generic) 08/18/2019, 8,08/06/2017,2015,08/04/2015,08/25/2014,09/11/2013,1 ,08/07/2013,08/07/2013 Influenza Adult (Generic) 08/21/2018,,08/29/2016,2015,08/04/2015,08/25/2014,08/13/2014,1 11/11/2012,08/07/2013 MODERNA COVID-19 (12+) MRNA, LNP-S, PF, 100 MCG/ 0.5 ML DOSE 01/03/2021,12/06/2020 Pneumococcal (Pneumovax 23) 11/11/2009 Pneumococcal (Prevnar 13) 11/28/2016 Tdap (Boostrix) 08/31/2019 Family History Medical History Relation Comments Early Father heart-- at54 Heart Disease Father Age 54 Arthritis Mother lupus and Arthri tus CHF Mother Cancer Mother lung Heart Disease Mother Hypertension Mother Lupus Mother Early Sister Relation Status Comments Father Mother Sister Alive Social History Tobacco Use Types Packs/Day Years Used Date Smoking Tobacco: Never Smokeless Tobacco: Never Tobacco Cessation:Counseling Given: No Alcohol Use Standard Drinks/Week Comments Not Currently 0 (1 standard drink = 0.6 oz pur e alcohol) OASIS D0700: Social Isolation Answer Da te Recorded Frequency of experiencing loneliness or isolatio n Never 06/24/2024 OASIS A1250: Transportation Answer Date Recorded Lack of Transportation (Medical) No 06/24/2024 Lack of Transportation (Non-Medical) No 06/24/2024 Patient Unable or Declines to Respond No 06/24/2024 OASIS B1300: Health Literacy Answer Sundeep e Recorded Frequency of needing help to read materials from doctor or pharmacy Never 06/24/2024 [facility] Utilities Answer Date Recorded In the past 12 months has th e [place] gas, oil, or water [employer] threatened to shut off services in your home? No 05/29/2024 Humiliation, Afraid, Rape, and Kick questionnair e Answer Date Recorded Within the last year, have y ou been afraid of your partner or ex-partner? No 05/29/2024 Within the last year, have y ou been humiliated or emotionally abused in other ways by your partner or ex-partner? No Within the last year, have y ou been kicked, hit, slapped, or otherwise physically hurt by your partner or ex-partner? No 05/29/2024 Within the last year, have y ou been raped or forced to have any kind of sexual activity by your partner or ex-partner? No 05/29/2024 Overall Financial Resource Strain (CARDIA) Answe r Date Recorded How hard is it for you to pa y for the very basics like food, housing, medical care, and heating? Not hard at all 05/29/2024 PHQ-2 Answer Date Recorded Patient Health Questionnaire-2 Score 0 06/08/2024 Hunger Vital Sign Answer Date Recorded Within the past 12 months, y ou worried that your food would run out before you got the money to buy more. Never true 05/29/20 24 Within the past 12 months, t he food you bought just didn't last and you didn't have money to get more. Never true 05/29/2024 PRAPARE - Transportation Answer Date Re corded In the past 12 months, has l ack of transportation kept you from medical appointments or from getting medications? No 05/11 In the past 12 months, has l ack of transportation kept you from meetings, work, or from getting things needed for daily living? No 05/29/2024 Housing Stability Vital Sign Answer Sundeep e [...] place to sleep or slept in a correction (including now)? No 04/23/2023 Housing Stability Vital Sign Answer Sundeep e Recorded In the last 12 months, was t here a time when you were not able to pay the mortgage or rent on time? No 05/29/2024 In the past 12 months, how m any times have you moved where you were living? 0 05/29/2024 At any time in the past 12 m [facility], were you homeless or living in a correction (including now)? No 05/29/2024 Comments No Sex and Gender Information Value Date Recorded Sex Assigned at Female 12/04/2024 1:27 PM FORENSIC AUDIT EXPERT Legal Sex Female 9:05 AM CDT Gender Identity Female 12/25/2021 4:40 AM FORENSIC AUDIT EXPERT Sexual Orientation Straight 12/25/2021 4: 40 AM FORENSIC AUDIT EXPERT Last Filed Vital Signs Vital Sign Reading Time Taken Comments Blood Pressure 120/60 07/07/2025 11:28 AM CDT Pulse 103 07/07/2025 11:28 AM CDT Temperature 35.9 C (96.6 F) 06/07/2025 9:32 AM CDT Respiratory Rate 16 07/07/2025 11:28 AM CDT Oxygen Saturation 96% 07/07/2025 11:28 AM CDT Inhaled Oxygen Concentration - - Weight 87 kg (191 lb 12.8 oz) 07/07/2025 11:28 A M CDT Height 160 cm (5' 3) 07/07/2025 11:28 AM CDT Body Mass Index 33.98 07/07/2025 11:28 AM CDT Plan of Treatment Upcoming Encounters Date Type Department Care Team (Late st Contact Info) Description 12/06/2025 2:20 PM FORENSIC AUDIT EXPERT Office Visit [facility] - [facility] [address] [facility], [address] [place] [address] Jaya Thompson MD [address] [place] [address] 01/11/2026 1:00 PM FORENSIC AUDIT EXPERT Office Visit [facility] [facility], [address] [place] [address] Heather Salomon, WOOL WASHER-C Three [facility]. [facility] [address] [place] [address] Health Maintenance Due Date Last Done Comments Zoster Vaccines (1 of 2) 1990 RSV Immunization or 60+ Years (1 - 1-dose 75+ series) 2015 Annual Medicare Wellness Visit 10/30/2024 10/29/2023 PHQ-2 (Physician [place]) 11/11/2024 06/08/2024 ASCVD LDL 04/09/2025 04/09/2024, 03/13, 04/23/2023, Additional history exists COVID-19 Vaccine ( season) 2025 09/15/2021, 01/03/2021, 12/06/2020 Influenza Adult (#1) 2025 10/29/2023, 10/12/2022, 08/21/2021, Additional history exists DTaP, Tdap and Td Vaccines (2 - Td or Tdap) 08/31/2029 08/31/2019 Dexa Scan (General) Completed 06/01/2011 Pneumococcal Vaccine: 50+ Years Completed 11/28/2016, 11/11/2009 Hepatitis A Vaccines Aged Out No long er eligible based on patient's age to complete this topic Meningococcal B Vaccine Aged Out No l onger eligible based on patient's age to complete this topic Meningococcal Vaccine Aged Out No delaney xavier eligible based on patient's age to complete this topic RSV Immunizations Under 20 Months Aged Out No longer eligible based on patient's age to complete this topic Goals Goal Patient Goal Type Associated Problems Recent Progress Patient-Stated? Author Health - patient able to perform ADLs independently General No Yumiko Shirley, RN Patient will return to prior living situation and remain independent in ADLs upon discharge from hospital Lifestyle No Paula Browning, tree wrapper - family caregiver with be involved in care transitions and discharge planning Lifestyle No Marbella Rojo vacuum drum drier operator Procedure Name Priority Date/Time Associated Diagnosis Comments LIPOPROTEIN, LDL CHOL, DIRECT Routine 04/09/2024 7:58 AM CDT from Last 3 Months or Most Recently Relevant to Health Maintenance Results * LIPOPROTEIN, LDL CHOL, DIRECT (04/09/2024 7:58 AM CDT) DIRECT LDL 97 <100 MG/DL 04/09/2024 10:05 AM CDT [facility] 04/09/2024 7:58 AM CDT us Enrike Cutler MD LABORATORY Final Result [facility] [address] [place] [address], [place] [phone] from Last 3 Months or Most Recently Relevant to Health Maintenance Insurance Member Subscriber Plan / Payer ( fective 2019-Present) Name:Herminia Hi Relation to Subscriber:Self Name:Herminia Hi Payer ID:Not on file Group ID:Not on file Type:Medicare Address: [address] [place] MEDICARE Member Subscriber Plan / Payer ( fective 2019-Present) Name:Herminia Hi Relation to Subscriber:Self Name:Herminia Hi Payer ID:Not on file Group ID:Not on file Type:Medicare Address: [address] Advance Directives * Full Code (Latest Code Status on File) Date Activated Date Inactivated Comments 06/06/2024 12:55 PM 08/21/2024 10:57 AM * Full Code Date Activated Date Inactivated Comments 06/01/2024 8:02 PM 06/05/2024 1:22 PM * Full Code Date Activated Date Inactivated Comments 06/01/2024 4:41 PM 06/01/2024 8:02 PM * Full Code Date Activated Date Inactivated Comments 05/29/2024 8:26 PM 06/01/2024 4:39 PM * Full Code Date Activated Date Inactivated Comments 04/22/2023 11:29 PM 04/24/2023 5:44 PM Care Teams Pain Management Physician Relationship Specialty Start Date End Date Mary Carey MD [address] [place] [id number] PCP - General FAMILY PRACTICE 08/06/24 Carlos Manzanares DO FAMILY PRACTICE 08/04/20 Enrike Cutler MD [address] [address] Consulting Physician CARDIOVASCULAR DISEASE 06/08/24
--- OUTSIDE RECORDS SUMMARY | 2025-09-06 15:14 | XMS_ITS | Encounter Summary ---
Author Organization [facility] Address [facility] [place] [address] Care Team Providers Care Inspector Government Property Name Role Phone Carlos Manzanares DO Primary Care Provider Carlos Manzanares DO Unavailable [phone] Tanika Scanlon MD Primary Care Provider [phone] Enrike Cutler MD Unavailable [phone] Mary Carey MD Primary Care Provider [phone] Reason for Referral * Surgical (Routine) - Closed Specialty Diagnoses / Procedures Referred By Deemtrius lay Referred To Contact Diagnoses Sacroiliitis Procedures Case request operating room: BLOCK SACROILIAC JOINT Renetta Merida NP [address] [facility] [address] [place] [address] Phone: tel: [phone] fax: Referral ID Status Reason Start Date Expiration Date Visits Re quested Visits Authorized [id number] Closed 09/10/2023 09/10/2024 1 1 Encounter Details Date Type Department Care Team (Late st Contact Info) Description 09/10/2023 Prep for Procedure [facility] [place] [address] [phone] Renetta Merida, LAN 3 [facility] [address] [place], [place] [phone] [phone] (Work) Social History Tobacco Use Types Packs/Day Years [...] Date Recorded Patient Health Questionnaire-2 Score 0 09/05/2023 Hunger Vital Sign Answer Date Recorded Within the past 12 months, y ou worried that your food would run out before you got the money to buy more. Never true 04/23/20 Within the past 12 months, t he [...] Sex Assigned at Female 12/04/2024 1:27 PM BUTCHER SUPERVISOR Legal Sex Female 9:05 AM CDT Gender Identity Female 12/25/2021 4:40 AM BUTCHER SUPERVISOR Sexual Orientation Straight 12/25/2021 4: 40 AM BUTCHER SUPERVISOR documented as of this encounter Functional Status * Are you deaf or do you have serious difficulty hearing Answer Date of Assessment Author Status No 04/23/2023 12:09 AM CDT Adriana Jones R N Active * Are you blind or [...] Assessment Author Status No 04/23/2023 12:09 AM CDAdriana Acevedo R N Active * Because of a physical, mental, or emotional condition, do you have difficulty doing errands alone such as visiting a doctor's office or shopping? Answer Date of Assessment Author Status No 04/23/2023 12:09 AM CDT Adriana Jones R N Active * Calculated C-SSRS Risk Score (Lifetime/Recent) Answer Date of Assessment Author Status No Risk Indicated 09/10/2023 10:06 AM Rebekah Johnson RN Active * [place] Suicide Severity Rating Scale (Screener/Recent Self-Report) Question Answer Date of Assessment Author Status 1. Wish to be (Past 1 Month) No 09/10/2023 10:06 AM Rebekah Johnson RN Activ e 2. Non-Specific Active Suicidal Thoughts (Past 1 Month) No 09/10/2023 10:06 AM CDT Rebekah Dillon RN Activ e documented as of this encounter Mental Status * Because of a physical, mental, or emotional condition, do you have serious difficulty concentrating, remembering, or making decisions? Answer Entry Date Author Status No 04/23/2023 12:09 AM CDT Adriana Jones R N Active documented in this encounter Plan of Treatment Upcoming Encounters Date Type Department Care Team (Late st Contact Info) Description 12/06/2025 2:20 PM BUTCHER SUPERVISOR Office Visit [facility] Mult[facility]pec[facility] Care - [facility] [address] [facility], [address] [place] [address] Jaya Thompson MD [address] [place] [address] 01/11/2026 1:00 PM BUTCHER SUPERVISOR Office Visit [facility] [facility], [address] [place] [address] Heather Salomon, REHABILITATION AIDE/SCHEDULER-C Three [facility]. [address] [place] [address] Scheduled Orders Name Type Priority Associated Diagnoses Orde r Schedule Case request operating room: BLOCK SACROILIAC JOINT Case Request Routine Sacroiliitis Once for 1 Occurrences starting 09/10/2023 until 09/10/2023 documented as of this encounter Goals Goal Patient Goal Type Associated Problems Recent Progress Patient-Stated? Author Health - patient able to perform ADLs independently General No Myrtle Shirley, RN Patient will return to prior living situation and remain independent in ADLs upon discharge from hospital Lifestyle No Paula Browning, RN documented as of this encounter Visit Diagnoses Diagnosis Sacroiliitis- Primary Sacroiliitis, not elsewhere classified documented in this encounter Additional Health Concerns Assessment Noted Time PHQ-9 Depression Total Score: 0 12/22/19 22 4:12 PM BUTCHER SUPERVISOR documented as of this encounter Care Teams Inspector Government Property Relationship Specialty Start Date End Date Carlos Manzanares DO PCP - General FAMILY PRACTICE 08/04/20 06/07/24 Tanika Scanlon MD [address] [place] [address] PCP - General FAMILY PRACTICE 06/08/24 08/05/24 Mary Carey MD [address] [place] [address] [address] PCP - General FAMILY PRACTICE 08/06/24 Carlos Manzanares DO FAMILY PRACTICE 08/04/20 Enrike Cutler MD [address] [address] Consulting Physician CARDIOVASCULAR DISEASE 06/08/24 documented as of this encounter
[2025-09-06 18:43] LABS: Alanine Aminotransferase 23 U/L (6-35); Albumin Level 4.4 g/dL (3.5-5.1); Alkaline Phosphatase 105 U/L (38-126); Anion Gap 2 mmol/L (4-12); Aspartate Amino Transferase 47 U/L (14-36); Bilirubin,Total 0.5 mg/dL (0.2-1.3); Blood Urea Nitrogen 22 mg/dL (7-17); Calcium 11.0 mg/dL (8.4-10.2); Carbon Dioxide 33 mmol/L (22-30); Chloride 99 mmol/L (98-107); Cholesterol 210 mg/dL (0-200); Estimated Glomerular Filt Rate 41; Glucose 67 mg/dL (65-110); HDL Direct 44 mg/dL; Potassium 4.0 mmol/L (3.4-5.0); Sodium 134 mmol/L (137-145); Total Protein 7.6 g/dL (6.3-8.2); Triglycerides 321 mg/dL (<150)
[2025-09-06 19:19] LABS: Hemoglobin A1C 5.9 % (<5.7)
[2025-09-06 19:26] LABS: MALB Creatinine Ratio 97.3 mg/g (0-30)
[2025-09-06 19:26] LABS: Ferritin 28.80 ng/mL (11.1-264)
[2025-09-06 19:41] LABS: Vitamin B12 815.0 pg/mL (239-931)
== END 2025-09-06 13:38 | disposition home or self-care (01) ==
LOC: ANHGOSHLAB 13:37
PROVIDERS: PCP Family Medicine; Visit Provider Family Medicine
DX: R74.8 Abnormal levels of other serum enzymes (principal); E11.9 Type 2 diabetes mellitus without complications; Z79.4 Long term (current) use of insulin
CPT/HCPCS: 36415; 80053; 80061; 82043; 82607; 82728; 83036; 86803

== ENCOUNTER 2025-11-05 07:52 | Outpatient (CLI) | payer MEDICARE, SELFPAY ==
--- NOTE | ~2025-11-05 | DEXA_ITS ---
Bone Density Report Name: NICOLE PEARL Age: 84 Sex: Female Ethnicity: White Date of : 1940 Indication: postmenopausal; screening for osteoporosis; height loss; hysterectomy; Referring Provider: TERESITA NEIL Study: Bone densitometry was performed. Exam Date: November 05, 2025 Accession number: [id number] Bone Density: Region BMD T-score Z-score Classification Femoral Neck (Left) 0.716 -1.2 1.3 Osteopenia Total Hip (Left) 0.904 -0.3 2.0 Normal Femoral Neck (Right) 0.698 -1.4 1.2 Osteopenia Total Hip (Right) 0.913 -0.2 2.1 Normal Total Hip Mean 0.908 -0.3 2.1 Normal World Health Organization criteria for BMD impression classify patients as: Normal (T-score at or above -1.0), Osteopenia (T-score between -1.0 and -2.5), or Osteoporosis (T-score at or below -2.5). 10-year Fracture Risk(1): Major Osteoporotic Fracture 12% Hip Fracture 2.9% Reported Risk Factors: [place] (), Neck BMD=0.698, BMI=32.8 (1) FRAX(R) Version 3.08. Fracture probability calculated for an untreated patient. Fracture probability may be lower if the patient has received treatment. Previous Exams: -- Region Exam Age BMD T-score BMD Change BMD Change Date g/cm2 vs Baseline vs Previous -- Total Hip(Left) 11/05/2025 84 0.904 -0.3 -2.1% -2.1% 01/03/2017 76 0.923 -0.2 Total Hip(Right) 11/05/2025 84 0.913 -0.2 6.0%* 6.0%* 01/03/2017 76 0.861 -0.7 -- *Denotes significance at 95% confidence level, LSC for Total Hip = 0.027 g/cm2 Clinical Information Provided by Patient: Has used the following medications: Vitamin D, Calcium Has the following medical conditions: Hysterectomy, Insulin dependent Type 2 DM Patient maximum height was 64 Menopause Age: 31 No regular weight bearing exercise Does not regularly consume dairy products Drinks caffeinated beverages Onset of menses at age 13 Number of children 4 Impression: The patient has low bone mass, based on the Right Femoral Neck T-score. The patient has an estimated ten-year risk of hip fracture of 2.9% and an estimated ten-year risk of major fracture of 12%, based on the WHO FRAX algorithm. No significant bone loss was observed. Discussion: BONE DENSITY IS LOW AT ONE OR MORE SKELETAL SITES. This patient's lowest T-score is low at one or more skeletal sites. It meets the World Health Organization's (WHO) criteria for ?low bone mass? (T-score between -1.0 and -2.5). The patient's 10-year risk of fracture as calculated by FRAX is less than the threshold where pharmacological therapy is recommended by the National Osteoporosis Foundation (NOF). However, all treatment decisions require clinical judgment and consideration of individual patient factors, including patient preferences, comorbidities, previous drug use, risk factors not captured in the FRAX model (e.g., frailty, falls, vitamin D deficiency, increased bone turnover, interval significant decline in bone density) and possible under or overestimation of fracture risk by FRAX. The patient should follow a healthful lifestyle (good nutrition with adequate calcium and vitamin D, and appropriate weight-bearing exercise). Follow-Up: Consider repeating this study in 2 to 3 years to reassess this patient's status, or sooner if there is some new clinical indication. Reported by: DOMINGA on 11/05/2025 8:20:00 AM. Reviewed, dictated and finalized at location A.
== END 2025-11-05 07:53 | disposition home or self-care (01) ==
LOC: MICIMG 07:53
PROVIDERS: PCP Family Medicine; Visit Provider Student in an Organized Health Care Education/Training Program
DX: N95.0 Postmenopausal bleeding (principal); M85.89 Other specified disorders of bone density and structure, multiple sites; Z78.0 Asymptomatic menopausal state
CPT/HCPCS: 77080